=== PATIENT | female | born 1960 | race Caucasian/White ===

== ENCOUNTER → 2018-02-07 01:46 | Outpatient (CLI) | payer MEDICAID, SELFPAY ==
[2018-02-07 13:08] LABS: HCT 40.6 % (36.0-46.0); HGB 13.4 g/dL (12.0-15.5); Mean Corpuscular Hemoglobin 30.2 pg (27.0-33.0); Mean Corpuscular Volume 91.4 fL (80-95); Mean Platelet Volume 11.2 fL (8.0-11.0); Platelet Count 206 x1000/uL (130-400); RBC 4.44 m/cumm (4.00-5.20); RBC Distribution Width 12.9 % (11.7-14.6); White Blood Cell Count 5.78 k/cumm (4.4-10.8)
[2018-02-07 13:17] LABS: TSH (W/Ref FT4) 1.54 uIU/mL (0.358-3.74)
[2018-02-08 12:30] LABS: FSH 36.2 mIU/ml
== END ==
PROVIDERS: PCP Family Medicine; Visit Provider Family Medicine
DX: D64.9 Anemia, unspecified (principal); R61 Generalized hyperhidrosis
CPT/HCPCS: 36415; 85027; 83001; 84443

== ENCOUNTER 2018-05-30 11:45 | Outpatient (CLI) | payer MEDICAID, SELFPAY ==
[2018-05-30 12:59] LABS: Hemoglobin A1C 6.1 % (4.5-6.2)
[2018-05-30 13:01] LABS: CREATININE 0.79 mg/dL (0.55-1.02)
== END 2018-05-30 12:05 ==
PROVIDERS: PCP Family Medicine; Visit Provider Family Medicine
DX: E11.9 Type 2 diabetes mellitus without complications (principal)
CPT/HCPCS: 36415; 82565; 83036

== ENCOUNTER 2018-06-13 00:19 | Outpatient (CLI) | payer MEDICAID, SELFPAY ==
--- NOTE | 2018-06-13 11:43 | DI.MAMMO_ITS ---
SYMPTOMS/DIAGNOSIS: SCREENING FOR BREAST CANCER, Z12.31, H/O BREAST REDUCTION SURGERY MAMMOGRAM: Mammograms were interpreted according to the usual protocol including computer analysis with CAD system, tomosynthesis and C view imaging. The breasts are of moderate density with fairly symmetrical distribution of fibroglandular tissue. No dominant mass or clumped microcalcification identified in either breast. Examination is compared with the previous examinations including May 2017 and there has been no gross interval change in appearance in comparison with the previous studies. CONCLUSION: No specific evidence of malignancy at this time. Routine screening examinations are suggested at yearly intervals in this age group according to the ACS/ACR guidelines. Category 1, breast density category B. SA ASSESSMENT OF FINDINGS: Negative. Category 1. Patient will receive a letter notifying them of these results. BI-RADS category B. There are scattered areas of fibroglandular density.
== END 2018-06-13 00:39 ==
PROVIDERS: PCP Family Medicine; Visit Provider Family Medicine
DX: Z12.31 Encounter for screening mammogram for malignant neoplasm of breast (principal); Z98.890 Other specified postprocedural states
CPT/HCPCS: 77063; 77067

== ENCOUNTER 2019-05-31 11:51 | Outpatient (CLI) | payer MEDICAID, SELFPAY ==
[2019-05-31 13:28] LABS: Calculated LDL 126 mg/dL; Cholesterol 218 mg/dL (<200); HDL Cholesterol 42 mg/dL (40-60); Triglyceride 251 mg/dL (<150)
== END 2019-05-31 12:11 ==
PROVIDERS: PCP Family Medicine; Visit Provider Family Medicine
DX: E74.39 Other disorders of intestinal carbohydrate absorption (principal); Z13.220 Encounter for screening for lipoid disorders; Z00.00 Encounter for general adult medical examination without abnormal findings
CPT/HCPCS: 36415; 80061; 83036

== ENCOUNTER 2020-05-27 13:09 | Outpatient (REF) | payer MEDICAID, SELFPAY ==
--- NOTE | 2020-05-27 12:10 | SKI_PTH ---
PATIENT: Mami Goldstein LOC: [facility] U#:[id number] AGE/SX: 59/F ROOM: RE05/27/[address]: Cruzito Lucero NP : 1960 BED: DIS: 05/27/2020 SPEC #: [id number] RECD: 05/27/20 16:32 STATUS: MILLY REQ #: [id number] RAHUL: 05/27/20 12:[address]: Cruzito Lucero DEPT: Surgical Specimen RECD BY: Concha Mcpherson ENTERED: 05/27/20 16:33 SP TYPE: WILLIAM CARBAJAL DR: Camron Longoria MD Tissues: 1 - SKIN BIOPSY(SHAVE/PUNCH) Procedures: SKIN LEVEL 4 Comments: [id number]
== END 2020-05-27 13:29 ==
LOC: LBN 13:09
PROVIDERS: PCP Family Medicine; Visit Provider Nurse Practitioner Family
DX: D22.61 Melanocytic nevi of right upper limb, including shoulder (principal)
CPT/HCPCS: 88305

== ENCOUNTER 2020-06-17 01:40 | Outpatient (CLI) | payer MEDICAID, SELFPAY ==
--- NOTE | 2020-06-17 07:30 | DI.MAMMO_ITS ---
EXAM: MAMMO SCREENING CLINICAL HISTORY: screening,Z12.39 TECHNIQUE: Mammograms were interpreted according to the usual protocol including computer analysis w [employer] CAD system, tomosynthesis and C-view imaging. COMPARISON: FINDINGS: The breasts are of moderate density with fairly symmetrical distribution of fibroglandular tissue. N o dominant mass or clumped microcalcification is identified in either breast. The current examinatio n is compared with previous examinations including May 2018 and there has been no gross interval change in appearance in comparison with the prior studies. IMPRESSION: No specific evidence of malignancy at this time. Routine screening examinations are suggested at ye checo intervals in this age group according to the ACS ACR guidelines. BI-RADS Category 1 - Negative Breast Density - Category B - Scattered areas of fibroglandular density
[2020-06-17 12:25] LABS: Calculated LDL 203 mg/dL (<100); Cholesterol 304 mg/dL (<200); HDL Cholesterol 41 mg/dL (40-60); Triglyceride 302 mg/dL (<150)
== END 2020-06-17 02:00 ==
PROVIDERS: PCP Family Medicine; Visit Provider Family Medicine
DX: Z12.31 Encounter for screening mammogram for malignant neoplasm of breast (principal); R73.9 Hyperglycemia, unspecified; E78.5 Hyperlipidemia, unspecified
CPT/HCPCS: 36415; 77063; 77067; 80061; 83036

== ENCOUNTER 2020-10-27 22:12 | Outpatient (CLI) | payer MEDICAID, SELFPAY ==
--- NOTE | 2020-10-27 12:00 | DI.RAD_ITS ---
Exam(s) XR CERVICAL SPINE COMP 4-5V EXAM: XR CERVICAL SPINE COMP 4-5V CLINICAL HISTORY: neck pain M54.2 CERVICALGIA TECHNIQUE: COMPARISON: No exams were available for comparison FINDINGS: Six views were obtained. There is disc space narrowing at C3-4 and C5-6. There are moderate hypertr ophic endplate and facet changes throughout the cervical region. No fracture or dislocation. Neural foramina appear intact as visualized on the left. On the right the neural foramina are not ideally visualized, narrowing of lower cervical right-sided neural foramina not excluded. IMPRESSION: Degenerative changes of the cervical spine as described above. If there is a high clinical suspicion of disc herniation or neural foraminal impingement additional evaluation with MR may be considered. RADIATION DOSE DELIVERED: Total DLP
--- NOTE | 2020-10-27 12:00 | DI.RAD_ITS ---
Exam(s) XR LUMBAR SPINE COMPLETE EXAM: XR LUMBAR SPINE COMPLETE CLINICAL HISTORY: lumbar back painM54.5 LOWER BACK PAIN TECHNIQUE: COMPARISON: No exams were available for comparison FINDINGS: Five views were obtained. There is marked loss of the height at L5-S1 with associated endplate hyper trophic changes. Mild endplate hypertrophic changes and facet hypertrophic changes seen throughout t he remainder of the lumbar spine. No evidence of spondylolysis or spondylolisthesis. Slight right c onvex lumbar scoliosis noted. No evidence of acute fracture or dislocation. IMPRESSION: Degenerative changes as described above with evidence of disc degeneration at L5-S1. RADIATION DOSE DELIVERED: Total DLP
--- NOTE | 2020-10-27 12:00 | DI.RAD_ITS ---
Exam(s) XR SHOULDER RT COMPLETE 2+V EXAM: XR SHOULDER RT COMPLETE 2+V CLINICAL HISTORY: right shoulder M25.511 RT SHOULDER PAIN TECHNIQUE: COMPARISON: No exams were available for comparison FINDINGS: Five views were obtained. There appears to be mild narrowing of the cartilaginous joint space of the glenohumeral joint. Slight marginal osteophyte formation of the glenoid and humeral head noted. Mi ld hypertrophic changes of the acromioclavicular joint noted. There is nonspecific soft tissue calci fications she seen adjacent to the proximal humeral shaft. IMPRESSION: Mild degenerative changes as described above. RADIATION DOSE DELIVERED: Total DLP
--- NOTE | 2020-10-27 12:00 | DI.RAD_ITS ---
Exam(s) XR HIP RT COMPLETE AP PELVIS EXAM: XR HIP RT COMPLETE AP PELVIS CLINICAL HISTORY: right hip pain M54.31 SCIATICA TECHNIQUE: COMPARISON: No exams were available for comparison FINDINGS: Three views were obtained. The cartilaginous joint spaces of both hips appear fairly well maintained . There is mild enthesophyte formation of the greater trochanter of the femur on the right and proba juan also on the left as well. Minimal marginal osteophyte formation of acetabula noted. IMPRESSION: Mild DJD both hips. RADIATION DOSE DELIVERED: Total DLP
== END 2020-10-27 22:32 ==
PROVIDERS: PCP Family Medicine; Visit Provider Nurse Practitioner Family
DX: M25.511 Pain in right shoulder (principal); M19.011 Primary osteoarthritis, right shoulder; M54.5 Low back pain; M51.37 Other intervertebral disc degeneration, lumbosacral region; M25.551 Pain in right hip; M16.0 Bilateral primary osteoarthritis of hip; M54.2 Cervicalgia; M50.31 Other cervical disc degeneration, high cervical region; M50.322 Other cervical disc degeneration at C5-C6 level
CPT/HCPCS: 72050; 72110; 73030; 73502

== ENCOUNTER 2021-05-05 00:39 | Outpatient (CLI) | payer MEDICAID, SELFPAY ==
--- NOTE | 2021-05-05 07:00 | DI.MRI_ITS ---
Exam(s) MR LUMBAR SPINE WO EXAM: MR LUMBAR SPINE WO CLINICAL HISTORY: stool incontinence/low backpain,M54.5,R15.9. TECHNIQUE: Multiplanar multisequence MRI was performed. COMPARISON: No exams were available for comparison FINDINGS: MR examination lumbosacral spine was performed according to the usual protocol. There are Misty discal vertebral signal changes at L5-S1 consistent with disc degeneration. Otherwise intervertebral disc spaces are well maintained. There is loss of height at L5-S1 intervertebral dis c. No other significant bony signal abnormality seen. The conus medullaris appears intact. No significant findings involving the spinal canal, nerve roots , or discs from the T10-T11 level to the L2-3 level. At L3-4, there is minimal disc bulge. There is no evidence of disc herniation, central canal spinal stenosis, or neural foraminal stenosis. At L4-5, there is a moderate disc bulge. There is a question of a small superimposed central disc he rniation at this level. No central canal spinal stenosis or neural foraminal stenosis. At L5-S1, there is a moderate disc bulge without evidence of focal disc herniation. No significant c entral canal spinal stenosis. There appears to be slight bilateral neural foraminal stenosis.. IMPRESSION: Moderate disc bulge at L4-5 with possible mild superimposed central disc herniation, no gross neural impingement identified. Mild bilateral neural foraminal narrowing at L5-S1. DATA REPOSITORY:
--- NOTE | 2021-05-05 07:00 | DI.MRI_ITS ---
Exam(s) MR CERVICAL SPINE WO EXAM: MR CERVICAL SPINE WO CLINICAL HISTORY: ms; neck pain,M54.2. TECHNIQUE: Multiplanar multisequence MRI was performed. COMPARISON: No exams were available for comparison FINDINGS: MR examination of the cervical spine was performed according to the usual protocol. Images obtained through the posterior fossa are unremarkable. Spinal cord shows normal diameter and normal signal throughout. There is no significant bony signal abnormality seen. There is a mild mid cervical kyphosis. There is prominence of the disc osteophyte complex posteriorly at C 3 4, C4-5, and C5-6. No significant findings at C2-3. At C3-4, there appears to be moderate bilateral neural foraminal narrowing. No disc herniation, or c entral canal spinal stenosis. At C4-5, there is probable mild left-sided neural foraminal narrowing. No right-sided neural foramin al narrowing or central canal spinal stenosis. There is prominence of the disc osteophyte complex wi thout disc herniation. At C5-6, there is bilateral neural foraminal narrowing. There is no central canal spinal stenosis. There is prominence of the disc osteophyte complex. No disc herniation seen. At C6-7, the neural foramina are poorly seen. No evidence of disc herniation or central canal spinal stenosis. IMPRESSION: Prominence of the disc osteophyte complex noted at multiple levels, multilevel neural foraminal narro wing noted. Please see above discussion for findings at individual levels. DATA REPOSITORY:
== END 2021-05-05 00:59 ==
PROVIDERS: PCP Family Medicine; Visit Provider Family Medicine
DX: M54.59 Other low back pain (principal); R15.9 Full incontinence of feces; M54.2 Cervicalgia; M51.26 Other intervertebral disc displacement, lumbar region; M48.07 Spinal stenosis, lumbosacral region
CPT/HCPCS: 72141; 72148

== ENCOUNTER 2021-06-22 03:25 | Outpatient (CLI) | payer MEDICAID, SELFPAY ==
[2021-06-22 12:40] LABS: CREATININE 0.9 mg/dL (0.55-1.02); Calculated LDL 131 mg/dL (<100); Cholesterol 248 mg/dL (<200); HDL Cholesterol 47 mg/dL (40-60); Potassium 4.3 mmol/L (3.5-5.1); Triglyceride 351 mg/dL (<150)
== END 2021-06-22 03:26 | disposition home or self-care (01) ==
LOC: LBO 03:25
PROVIDERS: PCP Family Medicine; Visit Provider Family Medicine
DX: E78.5 Hyperlipidemia, unspecified (principal); I10 Essential (primary) hypertension
CPT/HCPCS: 36415; 80061; 82565; 84132

== ENCOUNTER 2021-09-20 04:08 | Outpatient (CLI) | payer MEDICAID, SELFPAY ==
[2021-09-20 10:27] LABS: Source Nasal/Nares
[2021-09-20 14:44] LABS: COVID-19 PCR Negative (Negative)
== END 2021-09-20 04:09 | disposition home or self-care (01) ==
PROVIDERS: Surgery; PCP Family Medicine; Visit Provider Surgery
DX: Z20.822 Contact with and (suspected) exposure to COVID-19 (principal); Z01.818 Encounter for other preprocedural examination
CPT/HCPCS: 87635

== ENCOUNTER 2021-09-22 09:32 | Day surgery (SDC) | payer MEDICAID, SELFPAY ==
--- NOTE | 2021-09-22 06:42 | W.COLOREPORT ---
Colonoscopy Report Date of procedure: 09/22/21 Pre-op diagnosis general: Colon Cancer Screening Post-op diagnosis procedure note: same Procedure: Colonoscopy Surgeon: Cherise Grant Anesthesia Type: General:No Airway Estimated blood loss (mL): 0 Pathology: none sent Complications: None Disposition: same day Indications: The patient is here for Colonoscopy pre-op. Her last screening was in 2010 and was unremarkable. She has no family history of colon cancer. She has not had any bowel habit changes. -Discussed colonoscopy bowel prep as well as the procedure. Discussed possible complications of the procedure to include bleeding, pain, perforation, missed small lesion/polyp, sore throat, aspiration and adverse reaction to the medications. Questions were answered to patient?s satisfaction. No guarantees were implied or given.? Prep: Miralax/Dulcolax Procedure Start Time: 12:01 Procedure End Time: 12:23 Retraction Time: 11 minutes Findings: Normal colon Procedure Description: After informed consent was obtained the patient was taken to the procedure room and placed in a left decubitous position. Monitors were applied and a time out was done. The patients name, date of , procedure, allergies to medications and metal in their body was reviewed. The patient was then sedated. Once sedated and comfortable a rectal exam was done. External exam was normal. Internal exam revealed a normal sphincter tone and no palpable masses. The scope was then introduced and retro-flexed. No internal hemorrhoids, polyps or masses were identified on retro-flexion. The scope was then advanced to the cecum without difficulty. The ileocecal vlave and appendiceal orifice were identified. The prep was adequate. The scope was then slowly retracted over 11 minutes back into the rectum. There were no Polyps. There was no diverticulosis noted. The scope was removed and the patient was woken up and taken back to Same day surgery in stable condition. The patient tolerated the procedure well and there were no immediate complications. Follow up: The patient should follow up in 10 years unless they develop changes in bowel habits or other new gastrointestinal complaints.
--- NOTE | 2021-09-22 06:43 | W.PM.DSUDISC ---
Discharge Plan Disposition Patient Disposition: HOME Condition: Stable Discharge Details Reason For Visit: Colonoscopy Attending Provider: Cherise Grant Primary Care Provider: Camron Longoria Home Meds and New Rx's Prescriptions: Continued omega-3 fatty acids [Fish Oil Concentrate] 1,000 mg capsule 1,000 mg PO DAILY 0RF epinephrine 0.3 mg/0.3 mL auto-injector 0.3 mg IM PRN Qty: 1 1RF escitalopram oxalate 20 mg tablet 40 mg PO QAM Qty: 180 4RF Rx Instructions: 2 TABS QAM fluticasone propion-salmeterol [Advair Diskus] 250-50 mcg/dose blister with device 1 inh Inhalation BID Qty: 3 4RF simvastatin 40 mg tablet 40 mg PO HS Qty: 90 4RF fluticasone propionate 50 mcg/actuation spray,suspension 2 spray NS DAILY Qty: 120 5RF multivitamin 1 EACH tablet 1 ea PO DAILY 0RF glatiramer [Copaxone] 20 MG kit 20 mg SQ HS 0RF GLUCOSAMINE \T\ CHONDROITIN CAP 1 EACH capsule 1 tab-cap PO BID Qty: 200 4RF calcium carbonate-vitamin D3 1 EACH tablet 2 ea PO BID 0RF Label Comments: 11/15/16 1 tab BID. si albuterol sulfate [ProAir HFA] 90 mcg/actuation HFA aerosol inhaler 1 - 2 puff Inhalation Q4H PRN Qty: 18 3RF lisinopril 5 mg tablet 5 mg PO DAILY Qty: 90 4RF estradiol [Estrace] 0.5 mg tablet 0.5 mg PO DAILY Qty: 90 3RF loratadine 10 mg tablet See Rx Instructions .ROUTE .COMPLEX Qty: 90 4RF Dose Instruction: TAKE ONE TABLET BY MOUTH EVERY DAY Rx Instructions: TAKE ONE TABLET BY MOUTH EVERY DAY simvastatin 20 mg Tablet 20 mg PO DAILY 0RF Discharge Instructions Additional Instructions: Findings: Normal colonoscopy Follow up: 10 years Please call if you develop: fevers >101.5 Nausea or Vomiting Abdominal pain that is not transient Rectal bleeding that is more then a tbsp A hard abdomen and inability to pass gas DAY SURGERY UNIT POST ENDOSCOPY INSTRUCTIONS Instructions for everyone who is given Anesthesia: For your safety, please do the following for the next 24 Hours: a. Do not drive or operate dangerous equipment b. Do not drink alcohol beverages or use any recreational drugs for the first 24 hours or while taking pain medications. The medications in your body may have a reaction that can be dangerous. c. Do not make any important decisions or sign any important papers 1. Generally there are no restrictions on your activity after a day or so has gone by, but you may feel a bit fatigued for a few days. 2. After you arrive home you may have a light meal and return to a normal diet as you can tolerate it without feeling sick to your stomach. 3. After surgery, you may feel pain or discomfort. This should be only transient, but if it persists please contact your doctor. 4. If there are any questions regarding the findings of your procedure, please feel free to contact your doctor. 6. If you are unable to contact your doctor with a problem, contact the hospital at [phone]. 7. Continue all your regular medications unless directed otherwise. I understand the above instructions and have no questions. Signature of Patient or Responsible Adult Escort Date/Time Name of Responsible Adult Escort Signature of Nurse Date/Time Activity:: Activity as Tolerated Diet:: As Tolerated Discharge Orders Discharge Orders: Discharge Order (Routine); Ordered 09/22/21 Ordered By: Cherise Grant
[2021-09-22 09:50] VITALS: BP 152/95; PULSE 79; RESP 16; TEMP 36.1; O2SAT 98
[2021-09-22] MEDS: Lactated Ringers 1,000 ML 80 ML IV (10:14)
--- NOTE | 2021-09-22 10:37 | W.ANESPRE ---
General Info Date of Service Date Performed: 09/22/21 Height: 5 ft 3 in Weight: 88 kg Body Mass Index (BMI): 34.3 Surgical Procedure: Operation Date: 09/22/21 12:50 Proposed Procedure Side Surgeon sharon Grant MD Meds Allergies and Home Medications Allergies Allergy/AdvReac Type Severity Reaction Status Date / Time tree nut Allergy Intermediate Verified 09/22/21 09:43 Penicillins Allergy Mild HIVES- A Verified 09/22/21 09:43 CHILD Home Medication Medication Instructions Recorded glatiramer 20 mg/mL subcutaneous 20 mg SQ HS 04/03/13 syringe (Copaxone) multivitamin 1 ea PO DAILY 04/03/13 calcium carbonate 1,000 mg-vitamin 2 ea PO BID 01/05/16 D3 20 mcg (800 unit) tablet omega-3 fatty acids 1,000 mg 1,000 mg PO DAILY 01/14/19 capsule (Fish Oil Concentrate) epinephrine 0.3 mg/0.3 mL 0.3 mg (0.3 mL) IM PRN #1 pen 12/03/19 injection, auto-injector albuterol sulfate 90 mcg/actuation 1 - 2 puff INHALATION Q4H PRN #18 01/11/21 aerosol inhaler (ProAir HFA) gm lisinopril 5 mg tablet 5 mg PO DAILY #90 tab 02/05/21 estradiol 0.5 mg tablet (Estrace) 0.5 mg PO DAILY #90 tab-cap 05/12/21 escitalopram oxalate 20 mg tablet 40 mg PO QAM #180 tab-cap 06/09/21 fluticasone 250 mcg-salmeterol 50 1 inh INHALATION BID #3 each 06/09/21 mcg/dose blistr powdr for inhalation (Advair Diskus) fluticasone propionate 50 2 spray NS DAILY #120 sprays 06/09/21 mcg/actuation nasal spray,suspension simvastatin 40 mg tablet 40 mg PO HS #90 tab-cap 06/09/21 loratadine 10 mg tablet See Rx Instructions .ROUTE 08/05/21 .COMPLEX #90 tablet simvastatin 20 mg tablet 20 mg PO DAILY 09/22/21 Current Visit Medications: Current Medications Generic Name Dose Route Start Last Admin Trade Name Freq PRN Reason Stop Dose Admin Hyoscyamine Sulfate 0.125 mg 09/22/21 06:44 Hyoscyamine 0.125 Mg Sl/Oral/Chew SL DIRECTED PRN Ringer's Solution 1,000 mls @ 80 mls/hr 09/22/21 06:00 09/22/21 10:14 IV 10/21/21 23:59 80 mls/hr INFUSION ULISES Administration IV Miscellaneous Supplies 1 each 09/22/21 06:00 Iv Access IV 10/21/21 23:59 DIRECTED ULISES Ondansetron HCl 4 mg 09/22/21 06:44 Ondansetron 4 Mg/2 Ml Vial IVP Q4H PRN PRN Nausea / Vomiting Sodium Chloride 0 ml 09/22/21 06:00 Normal Saline Flush 10 Ml Syr IV 10/21/21 23:59 PRN PRN Sodium Chloride 0 ml 09/22/21 06:00 Normal Saline 10 Ml Vial IJ 10/21/21 23:59 DIRECTED PRN Sterile Water 0 ml 09/22/21 06:00 Water,Injection,Sterile 10 Ml Vial IJ 10/21/21 23:59 DIRECTED PRN PFSH Active Problems Active Problems: Problem Status Onset Code Asthma 11/13/13 J45.909 Anxiety F41.9 Depressive disorder F32.9 Essential hypertension I10 Hyperlipidemia E78.5 Insomnia G47.00 Low back pain M54.5 Malignant melanoma of torso excluding breast 12/01/16 C43.59 Multiple sclerosis G35 Obesity E66.9 Pinworms 01/15/15 B80 Allergic rhinitis J30.9 Shoulder pain, right M25.511 Ear pain, right H92.01 Adjustment disorder F43.20 Lumbar back pain M54.5 Neck pain M54.2 Incontinence of feces R15.9 Screening for colon cancer Z12.11 Medical History Medical History Anxiety Asthma Depression Essential hypertension Hyperlipidemia Insomnia Low back pain Multiple sclerosis Surgical History Surgical History (Updated 09/22/21 @ 09:43 by Darrian Delarosa) Cholecystectomy Colonoscopy - MAC 04/04/11 Excision, Skin Mass (12/01/16) right chest Hx of tonsillectomy Ligation of fallopian tube Reduction mammoplasty Vaginal hysterectomy 11/17/10 Tobacco Smoking/Tobacco Use Status: Never Passive smoking exposure: Yes Alcohol Alcohol Intake: current Alcohol intake frequency: a few times a month Substance Use Substance use: Never Vital Signs and Lab Results Vital Signs Most Recent Vital Signs in EMR: Most Recent Vital Signs Temp Pulse Resp BP Pulse Ox 36.1 C L 79 16 152/95 H 98 09/22/21 09:50 09/22/21 09:50 09/22/21 09:50 09/22/21 09:50 09/22/21 09:50 Lab Results Blood Type / Crossmatch: No Data to Display Complete Blood Count: No Data to Display Complete Metabolic Panel: No Data to Display Liver Function Panel: No Data to Display Coagulation Panel: No Data to Display Cardiac Panel: No Data to Display Arterial Blood Gas: No Data to Display Venous Blood Gas: No Data to Display Pancreas Panel: No Data to Display Thyroid Panel: No Data to Display Infectious Disease: Coronavirus (COVID-19)(PCR) Negative (Negative) 09/20/21 08:29 09/20/21 Coronavirus 2019 Source Nasal/Nares 09/20/21 08:29 09/20/21 Blood Cultures: No Data to Display Toxicology Panel: No Data to Display Anesthesia Assessment and Plan Anesthesia History Personal History: No History of Anesthesia Complications Family History: No Family History of Anesthesia Complications Exercise Tolerance Exercise Tolerance: Metabolic Equivalents>4 Pertinent Negatives Pertinent Negatives: No Symptoms of GERD and No Major Cardiovascular Symptoms or Complaints Cardiac & Pulmonary Exam Cardiac Exam: Normal S1/S2 Heart Sounds Pulmonary Exam: Clear Bilateral Breath Sounds Implantable Cardiac Device Does patient have a Pacemaker or an ICD?: No Airway Exam Known Difficult Airway: No Mallampati Class: 2 Mouth Opening: Normal (> 3cm) Thyromental Distance: Less than 3 cm Neck Range of Motion: Full ROM Neck Circumference: Normal Teeth Condition: Normal Dentition ASA Classification ASA Score: ASA 3 Emergency Case?: No NPO Status NPO Status: NPO Clears >2 hours, Solids >8 hours Anesthesia Plan Resuscitation Status: Full Code Anesthesia Technique: General Anesthesia Airway Planned: Natural Airway Monitors Used: Standard Monitors
[2021-09-22 10:38] VITALS: BMI 34.3
[2021-09-22 12:29] VITALS: BP 111/67; PULSE 61; RESP 16; TEMP 36.3; O2SAT 97
--- NOTE | 2021-09-22 12:34 | W.ANESPOSTOP ---
Postoperative Evaluation Date, Time and Location Date Performed: 09/22/21 Time Performed: 12:34 Patient Location: Day Surgery Unit Vital Signs Most Recent Imported Vital Signs: Most Recent Vital Signs Temp Pulse Resp BP Pulse Ox 36.3 C L 61 16 111/67 97 09/22/21 12:29 09/22/21 12:29 09/22/21 12:29 09/22/21 12:29 09/22/21 12:29 Pain Score Most Recent Pain Score: Most Recent Pain Score Pain Level 0 09/22/21 12:29 Assessment Mental Status: Awake (Alert & Oriented to Patient Baseline) Airway and Respiratory Function: Patent airway with normal (patient baseline) respiratory exam Cardiovascular Function: Hemodynamically Stable Hydration Status: Adequately Hydrated Nausea & Vomiting: No Nausea or Vomiting Pain: Pt. Denies Any Pain Peripheral Nerve Block: Patient did not receive a nerve block
[2021-09-22 12:57] VITALS: BP 127/91; PULSE 61; RESP 16; TEMP 36.5; O2SAT 99
== END 2021-09-22 13:16 | disposition home or self-care (01) ==
LOC: SUR 09:32
PROVIDERS: PCP Family Medicine; Visit Provider Surgery
PROC: 0DJD8ZZ Inspection of Lower Intestinal Tract, Via Natural or Artificial Opening Endoscopic (ICD-10-PCS; CPT 45378; principal; 2021-09-22 12:45)
DX: Z12.11 Encounter for screening for malignant neoplasm of colon (principal); G35 Multiple sclerosis; I10 Essential (primary) hypertension
CPT/HCPCS: 45378

== ENCOUNTER → 2021-10-18 01:05 | Outpatient (CLI) | payer MEDICAID, SELFPAY ==
--- NOTE | 2021-10-18 08:15 | DI.MAMMO_ITS ---
Exam(s) MAMMO SCREENING EXAM: MAMMO SCREENING CLINICAL HISTORY: screening,z12.39 TECHNIQUE: Mammograms were interpreted according to the usual protocol including computer analysis w [employer] CAD system, tomosynthesis and C-view imaging. COMPARISON: 2011 through 2019 FINDINGS: The breasts are composed of mainly fatty density , Breast Density category A. No suspicious masses or suspicious microcalcifications are seen. No skin thickening or abnormal axillary lymph nodes are seen. There has been no significant change from prior exams. IMPRESSION: BI-RADS Category 1, Negative mammogram Yearly screening mammography is recommended. Breast Density - Category A, fatty density. A negative radiographic report should not delay biopsy if a dominant or clinically suspicious mass is present. Up to ten percent of cancers are not identified on mammography. A negative report may reinforce clinical impression. Adenosis and dense breasts may obscure an underlying neoplasm. False positive reports average 6 to 10%. Patient will receive a letter notifying them of these results.
== END ==
PROVIDERS: PCP Family Medicine; Visit Provider Family Medicine
DX: Z12.31 Encounter for screening mammogram for malignant neoplasm of breast (principal)
CPT/HCPCS: 77063; 77067

== ENCOUNTER 2022-01-07 02:38 | Outpatient (CLI) | payer MEDICAID, SELFPAY ==
[2022-01-07 13:02] LABS: Triglyceride 260 mg/dL (<150)
== END 2022-01-07 02:39 | disposition home or self-care (01) ==
LOC: LOS 02:39
PROVIDERS: PCP Family Medicine; Visit Provider Family Medicine
DX: E78.1 Pure hyperglyceridemia (principal)
CPT/HCPCS: 36415; 84478

== ENCOUNTER 2022-06-24 02:26 | Outpatient (CLI) | payer MEDICAID, SELFPAY ==
[2022-06-24 13:16] LABS: Calculated LDL 145 mg/dL (<100); Cholesterol 220 mg/dL (<200); HDL Cholesterol 45 mg/dL (40-60); Triglyceride 154 mg/dL (<150)
== END 2022-06-24 02:27 | disposition home or self-care (01) ==
LOC: LOS 02:26
PROVIDERS: PCP Family Medicine; Visit Provider Family Medicine
DX: E78.5 Hyperlipidemia, unspecified (principal)
CPT/HCPCS: 36415; 80061

== ENCOUNTER 2022-12-05 19:02 | Outpatient (CLI) | payer MEDICAID, SELFPAY ==
--- NOTE | 2022-12-05 19:15 | DI.RAD_ITS ---
Exam(s) XR WRIST LT COMPLETE EXAM: XR WRIST LT COMPLETE CLINICAL HISTORY: left dorsal wrist pain. TECHNIQUE: 2D digital imaging was performed of the left wrist. Three images were obtained. PA, obl ique and lateral views were obtained. COMPARISON: No exams were available for comparison FINDINGS: BONES: No acute fracture is present. No bony destructive lesion is seen. JOINTS: The carpal bones are normally aligned. SOFT TISSUE: Soft tissue swelling along the dorsum of the wrist. Faint calcification is seen within the soft tissue posterior to the proximal carpal row. Please correlate clinically. Foreign body isabell marisol dystrophic calcification. IMPRESSION: No acute fracture or dislocation. DATA REPOSITORY: RADIATION DOSE DELIVERED:
--- NOTE | 2022-12-05 20:10 | DI.VRAD_ITS ---
PROCEDURE INFORMATION: Exam: XR Left Wrist Exam date and time: 12/05/2022 7:25 PM Age: 62 years old Clinical indication: Other: Left dorsal wrist pain TECHNIQUE: Imaging protocol: Radiologic exam of the left wrist. Views: 3 or more views. COMPARISON: No relevant prior studies available. FINDINGS: Bones/joints: No acute fracture or dislocation. Normal osseous mineralization. Soft tissues: Mild dorsal wrist soft tissue swelling. Soft tissue calcification dorsal to the proximal carpal row, likely posttraumatic. IMPRESSION: No acute abnormality. Dictated and Authenticated by: Bhupendra Miller MD. Ordering:KARLA Tovar MD
== END 2022-12-05 19:22 ==
LOC: DI 19:02
PROVIDERS: PCP Family Medicine; Visit Provider Nurse Practitioner
DX: M77.8 Other enthesopathies, not elsewhere classified (principal)
CPT/HCPCS: 73110

== ENCOUNTER → 2023-07-05 01:48 | Outpatient (CLI) | payer MEDICAID, SELFPAY ==
--- NOTE | 2023-07-05 08:00 | DI.MRI_ITS ---
Exam(s) MR LUMBAR SPINE WO EXAM: MR LUMBAR SPINE WO CLINICAL HISTORY: low back pain,M54,5. TECHNIQUE: Multiplanar multisequence MRI of the Lumbar spine was performed. COMPARISON: CR XR LUMBAR SPINE COMPLETE from 10/27/2020 MR MR LUMBAR SPINE WO from 05/05/2021 FINDINGS: Conus medullaris is at normal level. There is no evidence of conus mass nor subjacent clumping of in trathecal nerve roots to suggest arachnoiditis. The distal thecal sac is at the S1 level. No eviden ce of Tarlov intra sacral cysts nor other significant findings within the sacral canal. Bones:There are no fractures nor ominous osseous lesions in the lumbar vertebral bodies and visualize d sacrum. Modic type 2 sub endplate fatty marrow changes are seen on both sides of the chronically n arrowed L5-S1 disc space. This was also present on the MRI scan of 05/05/2021. With respect to the individual levels... T12-L1: Unremarkable L1-2: Normal disc height and signal. No disc herniation nor central canal stenosis.No foraminal steno sis L2-3: Normal disc height. No disc herniation nor central canal stenosis.No foraminal stenosis.No face t arthropathy. L3-4: Normal disc height. No disc herniation or central canal stenosis.No foraminal stenosis.No face t arthropathy. L4-5: Normal disc height. There is annular bulging with a superimposed central subligamentous disc p rotrusion. Slightly more prominent than previous. This indents the anterior aspect of the thecal sa c. Osseous canal dimensions are lower normal. Moderate facet arthropathy noted. The disc herniatio n does not extend into the exiting neural foramen and there is no evidence of foraminal stenosis on e ither side at this level L5-S1: This level again exhibits chronic disc space narrowing and Modic type 2 sub endplate fatty mar row changes, unchanged from previous. There is broad mild symmetrical annular bulging at this level. No significant disc herniation. Central canal dimensions are lower normal. There is mild bilatera l foraminal stenosis again noted. Mild facet arthropathy. Soft tissues: paraspinal soft tissues appear unremarkable. IMPRESSION: 1. Compared to the prior MRI scan of April 2021 there is minimal if any significant change. There is moderate disc bulge L4-5 with superimposed posterior central disc herniation, unchanged. No prom inent canal stenosis at this level nor foraminal stenosis. 2. Chronic advanced disc space narrowing at L5-S1 level again noted with Modic type 2 sub endplate fa tty marrow changes. No canal stenosis at this level. Mild bilateral foraminal stenosis appears unch anged. DATA REPOSITORY:
== END ==
PROVIDERS: PCP Family Medicine; Visit Provider Family Medicine
DX: M51.26 Other intervertebral disc displacement, lumbar region (principal)
CPT/HCPCS: 72148

== ENCOUNTER 2023-10-04 10:41 | Outpatient (CLI) | payer MEDICAID, SELFPAY ==
[2023-10-04 10:50] VITALS: BP 128/71; PULSE 63; RESP 20; TEMP 36.6; O2SAT 98
[2023-10-04 11:22] VITALS: BP 153/73; PULSE 64; RESP 19; O2SAT 97
--- NOTE | 2023-10-04 11:22 | DI.RAD_ITS ---
Exam(s) XR PAIN CLINIC SACRIOILIAC 2V EXAM: XR PAIN CLINIC SACRIOILIAC 2V CLINICAL HISTORY: Dx: Sacroiliac Joint Dysfunction. TECHNIQUE: Fluoroscopy was provided for the referring physician for guidance with performing pain cl inic injection procedure. COMPARISON: No exams were available for comparison FINDINGS: Please see procedure note for details. Fluoro time: 23.6 seconds RADIATION DOSE DELIVERED: Ka,r=6.51 mGy
[2023-10-04] MEDS: Omnipaque 240 MG/ML 50 ML BTL IJ (11:23)
[2023-10-04] MEDS: Nerve Block Tray 1 EACH MC (11:23)
[2023-10-04] MEDS: methylPREDNISolone ACETATE 80 MG/ML VIAL IJ (11:24)
--- NOTE | 2023-10-04 12:20 | PDOC.PAIN ---
Date of service: 10/04/23 Time of Service: 12:20 Pain Managment Procedure Note Procedure Note Procedure Note: PROCEDURE NOTE LEFT INTRA-ARTICULAR SACROILIAC JOINT INJECTION Date of Service: October 04, 2023 Patient: Mami Goldstein Provider: Bhupendra Ricketts DO, MPH COMMENTS: I previously evaluated the patient in the office and their symptoms in relation to the sacroiliac joint pain have remained the same. Pre-operative diagnosis: Sacroiliac joint dysfunction Post-operative diagnosis: Same Pre-procedure pain: VAS= 7/10 Mami Goldstein has been referred to our [facility] for a Left intra-articular Sacroiliac joint injection. Mami was interviewed and the medical record reviewed. There were no medical, pharmacologic, radiographic or other structural contraindications to attempting a fluoroscopically-guided, contrast-enhanced, intra-articular Sacroiliac joint injection. The risks, benefits, and potential side effects of this procedure were reviewed with the patient. Questions and concerns were addressed. After it was clear that Mami was fully informed about the procedure, the printed consent form was signed by the patient and myself. Mami was placed in the prone position on the fluoroscopy table and an automated blood pressure cuff, 3 lead EKG, and pulse oximeter were applied. The skin entry point for approaching the Left sacroiliac joint was identified under the most advantageous fluoroscopic view and marked. Following thorough Chlorhexadine preparation of the skin and draping with sterile surgical drapes, 2 mls of 1% lidocaine was infiltrated into the skin at the entry point and the surrounding subcutaneous tissues. Next, a 3.5 22G spinal needle was placed under fluoroscopic guidance into the Left sacroiliac joint. Intra-articular placement was confirmed by a clear arthrogram resulting from the injection of 0.25ml of Omnipaque-240. Next, 1 ml of Depo- Medrol 80 mg/ml was injected intra-articularly with an initial reproduction of a significant component of the usual pain. This was followed with 1 ml of 1% Lidocaine. The needle was then removed without difficulty. (49 ml of Omnipaque-240 was wasted). Mami's vital signs were stable throughout the procedure and were as recorded in nursing records. Follow up plans and appointments were discussed with Mami. Post procedure instructions were given as documented in nursing records. Having met discharge criteria, Mami was [facility] from the [facility]. COMMENTS: Post-procedure pain: VAS= 1/10. If the patient receives at least 50% improvement in pain and/or function for at least 3 months, this procedure can be repeated if needed. I personally performed this entire procedure. BHUPENDRA RICKETTS DO, MPH ABPMR-subspecialty board certification in Pain Medicine [facility]
== END 2023-10-04 10:42 | disposition home or self-care (01) ==
LOC: PC 10:42
PROVIDERS: PCP Family Medicine; Visit Provider Preventive Medicine Occupational Medicine
DX: M46.1 Sacroiliitis, not elsewhere classified (principal)
CPT/HCPCS: 27096; 72200; J1010; Q9967

== ENCOUNTER 2024-07-13 15:26 | Outpatient (CLI) | payer MEDICAID, SELFPAY ==
--- NOTE | 2024-07-13 | DI.RAD_ITS ---
Exam(s) XR SCAPULA RT EXAM: XR SCAPULA RT CLINICAL HISTORY: fall, shoulder pain. TECHNIQUE: 2D digital imaging was performed. COMPARISON: CR XR SHOULDER RT COMPLETE 2+V from 07/13/2024 FINDINGS: Two dedicated scapular views No evidence of scapular fracture. There are some degenerative changes in the glenohumeral and AC joints. There is also a calcific dens ity in subacromial space consistent with calcific rotator cuff tendinitis. No adjacent rib fractures . IMPRESSION: No scapular fracture evident. Other findings as above. DATA REPOSITORY: RADIATION DOSE DELIVERED:
--- NOTE | 2024-07-13 | DI.RAD_ITS ---
Exam(s) XR SHOULDER RT COMPLETE 2+V EXAM: XR SHOULDER RT COMPLETE 2+V CLINICAL HISTORY: fall, shoulder pain. TECHNIQUE: 2D digital imaging was performed. COMPARISON: CR XR SHOULDER RT COMPLETE 2+V from 10/27/2020 FINDINGS: Five views No evidence of acute fracture or dislocation of the glenohumeral and AC joints. There is no diminuti on of the subacromial space. However, there is a calcific density in the soft tissues immediately ad jacent to the greater tuberosity, this measuring 6 x 4 mm and increased in size from prior measuremen t of 2020, consistent with calcific rotator cuff tendinitis. There are some degenerative changes also noted in the glenohumeral joint. There is a small osteophyt e on the inferior articular surface of the humeral head. Mild degenerative changes are also noted in the AC joint. Coracoid process is intact. IMPRESSION: No acute fracture or dislocation. Calcific rotator cuff tendinitis. Degenerative changes in the glenohumeral joint noted. DATA REPOSITORY: RADIATION DOSE DELIVERED:
--- NOTE | 2024-07-13 | DI.RAD_ITS ---
Exam(s) XR KNEE RT 3V AP,LAT,JERSON EXAM: XR KNEE RT 3V AP,LAT,JERSON CLINICAL HISTORY: fall, anterior knee pain. TECHNIQUE: 2D digital imaging was performed. COMPARISON: No exams were available for comparison FINDINGS: 3 views No evidence of fracture. No joint space narrowing. However, the does appear to be a joint effusion and on the lateral view there is subtle indentation of the cortical surface of the lateral femoral co ndyle. The patella exhibits somewhat more lateral than typical location. IMPRESSION: Lateral patellar location. Correlation any recent history of patellar dislocation recommended There is subtle indentation of the lateral condyle possibly related to pivot-shift injury. This, in combination with the joint effusion may imply internal derangement such is ACL injury. Orthopedic follow-up recommended. DATA REPOSITORY: RADIATION DOSE DELIVERED:
== END 2024-07-13 15:46 ==
PROVIDERS: PCP Family Medicine; Visit Provider Physician Assistant
DX: M75.31 Calcific tendinitis of right shoulder (principal); M25.561 Pain in right knee; W19.XXXA Unspecified fall, initial encounter
CPT/HCPCS: 73562; 73010; 73030

== ENCOUNTER 2024-08-30 00:15 | Outpatient (CLI) | payer MEDICAID, SELFPAY ==
--- NOTE | 2024-08-30 07:30 | DI.MRI_ITS ---
Exam(s) MR UPPER JOINT RT WO EXAM: MR UPPER JOINT RT WO CLINICAL HISTORY: R SHOULDER PAIN,RT ROTATOR CUFF TEAR,OA RT SHOULDER,M75.101,M19.011. TECHNIQUE: Multiplanar multisequence MRI was performed. COMPARISON: CR XR SCAPULA RT from 07/13/2024 CR XR SHOULDER RT COMPLETE 2+V from 07/13/2024 FINDINGS: The examination is limited due to patient motion artifact. BONES: There is no fracture or contusion pattern. JOINTS: There are mild degenerative changes seen at the acromioclavicular joint. The glenohumeral [place] int is normal. There is a joint effusion. TENDONS: Supraspinatus: There is a full-thickness tear through the supraspinatus tendon at its insertion site onto the greater tuberosity. There is underlying tendinosis of the supraspinatus tendon. Infraspinatus: There is tendinosis of the infraspinatus tendon. Subscapularis: There is tendinosis of the subscapularis tendon. Teres [place]: Unremarkable. Biceps and [place]: The biceps tendon is medially displaced. MUSCLES: Unremarkable. GLENOID LABRUM: Unremarkable on this noncontrast examination. SOFT TISSUES: Unremarkable. LIGAMENTS: Unremarkable. OTHER: There is fluid seen in the subacromial subdeltoid bursa. IMPRESSION: 1. Examination was limited by patient motion artifact. 2. Full-thickness tear of the supraspinatus tendon at its insertion site. 3. Medial dislocation of the biceps tendon. 4. Tendinosis of the supraspinatus, infraspinatus and subscapularis tendons. 5. No evidence of a fracture. 6. Joint effusion and fluid seen in the subacromial subdeltoid bursa. 7. Degenerative changes of the acromioclavicular joint. DATA REPOSITORY:
== END 2024-08-30 00:35 ==
LOC: DI 00:15
PROVIDERS: PCP Family Medicine; Visit Provider Student in an Organized Health Care Education/Training Program
DX: M75.121 Complete rotator cuff tear or rupture of right shoulder, not specified as traumatic; M75.21 Bicipital tendinitis, right shoulder
CPT/HCPCS: 73221

== ENCOUNTER 2024-09-04 02:18 | Outpatient (CLI) | payer MEDICAID, SELFPAY ==
--- NOTE | 2024-09-04 06:45 | DI.MRI_ITS ---
Exam(s) MR LOWER JOINT RT WO EXAM: MR LOWER JOINT RT WO CLINICAL HISTORY: PAIN,internal derangement rt knee, m23.91. TECHNIQUE: Multiplanar multisequence MRI was performed. COMPARISON: CR XR KNEE RT 3V AP,LAT,JERSON from 07/13/2024 FINDINGS: BONES: There is no fracture or contusion pattern. There is a small degenerative subchondral cyst in the region of the tibial spines. JOINTS: A small joint effusion is present. Articular cartilage: Patellofemoral joint: The patella is mildly laterally subluxed. The articular cartilage shows mild t hinning at the lateral facet at no focal defect. Medial femoral tibial joint: Articular cartilage shows mild thinning without focal defects. Lateral femoral tibial joint: Articular cartilage is unremarkable. LIGAMENTS/TENDONS: Anterior Cruciate: Unremarkable some surrounding edema but no visible tear. Posterior Cruciate: Unremarkable. Medial Collateral:Unremarkable. Lateral Collateral ligament complex: Unremarkable. Extensor mechanism: Unremarkable. Medial retinaculum: Unremarkable. Lateral retinaculum: Unremarkable. Popliteus: Unremarkable. MENISCI: The medial meniscus shows some blunting at the apex of the body. There is linear high signal extendi ng to the inferior articular surface of the body. The lateral meniscus is unremarkable. MUSCLES: Unremarkable. SOFT TISSUES: Unremarkable. IMPRESSION: Inferior surfacing tear in the body of the medial meniscus. Small joint effusion. Question of ACL sprain. Mild lateral patellar subluxation. DATA REPOSITORY:
== END 2024-09-04 02:38 ==
LOC: DI 02:18
PROVIDERS: PCP Family Medicine; Visit Provider Student in an Organized Health Care Education/Training Program
DX: S83.241A Other tear of medial meniscus, current injury, right knee, initial encounter (principal); X58.XXXA Exposure to other specified factors, initial encounter
CPT/HCPCS: 73721

== ENCOUNTER 2024-09-12 11:09 | Outpatient (CLI) | payer MEDICAID, SELFPAY ==
[2024-09-12 13:02] LABS: Calculated LDL 129 mg/dL (<100); Cholesterol 210 mg/dL (<200); Estimated GFR 62.91 (mL/min/1.73m2); HDL Cholesterol 49 mg/dL (>or=50); Potassium 4.7 mmol/L (3.5-5.1); Triglyceride 164 mg/dL (<150)
[2024-09-12 13:07] LABS: Hemoglobin A1C 6.5 % (<5.7)
[2024-09-12 18:41] LABS: HBs Antibody, Quant 33.1 mIU/mL (See Note); Hep B Surface Ab Positive (See Note); Hepatitis B Core Antibody Negative (Negative); Hepatitis B Surface Antigen Negative (Negative)
== END 2024-09-12 11:10 | disposition home or self-care (01) ==
LOC: LOS 11:09
PROVIDERS: PCP Family Medicine; Referring Provider Family Medicine; Visit Provider Family Medicine
DX: I10 Essential (primary) hypertension (principal); E78.5 Hyperlipidemia, unspecified; Z11.59 Encounter for screening for other viral diseases; R73.9 Hyperglycemia, unspecified
CPT/HCPCS: 36415; 80061; 86704; 86706; 87340; 82565; 83036; 84132

== ENCOUNTER 2024-09-19 06:13 | Day surgery (SDC) | payer MEDICAID, SELFPAY ==
[2024-09-19] VITALS (48 sets, daily range): BP systolic 91–187; BP diastolic 44–87; PULSE 54–99; RESP 9–20; TEMP 36–36.7; O2SAT 89–97; BMI 33.3
[2024-09-19] MEDS: Lactated Ringers 1,000 ML 30 ML IV (06:56)
--- NOTE | 2024-09-19 07:08 | W.PM.DSUDISC ---
Date of service: 09/19/24 Discharge Plan Disposition Patient Disposition: Home Condition: Stable Discharge Details Attending Provider: Paco Gamble Primary Care Provider: Camron Longoria Home Meds and New Rx's Prescriptions: New naproxen 250 mg tablet 250 - 500 mg PO BID PRN (Reason: Moderate pain) Qty: 40 0RF oxycodone 5 mg tablet 5 - 10 mg PO Q4H PRN (Reason: Moderate to severe pain) Qty: 18 0RF Continued fluticasone propion-salmeterol 500-50 mcg/dose blister with device 1 inh inhalation BID Qty: 180 3RF albuterol sulfate 90 mcg/actuation HFA aerosol inhaler 1 - 2 puff Inhalation Q4H PRN Qty: 18 3RF epinephrine 0.3 mg/0.3 mL auto-injector 0.3 mg IM PRN Qty: 1 1RF tizanidine 2 mg capsule 2 mg PO TID PRN dextroamphetamine-amphetamine [Adderall] 10 mg tablet 10 mg PO BID Rx Instructions: administer doses at least 4-6 hours apart glatiramer [Copaxone] 20 MG kit 20 mg SQ HS meloxicam 15 mg tablet 15 mg PO DAILY Qty: 90 3RF lisinopril 5 mg tablet 5 mg PO DAILY Qty: 90 3RF fenofibrate nanocrystallized [Tricor] 48 mg tablet 48 mg PO DAILY Qty: 90 3RF multivitamin Tablet 1 tab PO DAILY Qty: 90 3RF omega-3 fatty acids 1,000 mg capsule 1,000 mg PO DAILY Qty: 90 3RF calcium carbonate-vitamin D3 1,000 mg-20 mcg (800 unit) tablet 2 tab PO BID Qty: 360 3RF escitalopram oxalate 20 mg tablet 40 mg PO QAM Qty: 180 3RF Rx Instructions: 2 TABS QAM glucosamine sulfate 500 mg tablet 500 mg PO BID Qty: 180 3RF Rx Instructions: administer with meals loratadine 10 mg tablet See Rx Instructions .ROUTE .COMPLEX Qty: 90 4RF Dose Instruction: TAKE ONE TABLET BY MOUTH EVERY DAY Rx Instructions: TAKE ONE TABLET BY MOUTH EVERY DAY rosuvastatin 20 mg tablet 20 mg PO DAILY Qty: 90 3RF metformin 500 mg tablet 500 mg PO BID Qty: 180 3RF Discharge Instructions Additional Instructions: Surgery: Right shoulder arthroscopy with rotator cuff repair (subscapularis & supraspinatus), biceps tenodesis, extensive debridement (including calcium removal), distal clavicle excision, and subacromial decompression 09/19/24 Activity: For 6 weeks, you should keep your arm at your side in a neutral position at all times except for physical therapy. Do not try to lift or raise your arm using your own muscles. You should use the sling whenever you are out of the house. At home it is best to remove the sling and rest the arm on a pillow at your side or support the operative side with your other hand. You may allow the arm to dangle at your side. A physical therapy prescription will be sent electronically to begin in about 3 weeks. CONSERVATIVE protocol. Prescriptions: Naproxen 250 mg take 1-2 every 12 hours with a meal as needed for moderate pain Oxycodone 5 mg take 1-2 every 4-6 hours as needed for severe pain You may use [id number] Tylenol (acetaminophen) as needed for mild pain. These pain medications may be taken all at once or in different combinations as needed. Also, recommend Colace (docusate) as a stool softener as surgery and pain medicine cause constipation. You may try [id number] diphenhydramine (Benadryl) 25-50 mg nightly as a sleep aid Dressings: Remove shoulder bandage after 3 days. Leave the sticky Steri-Strips in place until they fall off or remove them after you shower. Cover the incisions with Band-Aids or leave them open to air. You may shower after 5 days. Follow-up: 10-[address] Gamble You may take off the leg compression stockings this evening at home. You may also leave them on a few days longer if you have a history of leg swelling or edema. Let us know right away if you develop any redness, drainage, fevers, chest pain, or trouble breathing. Do not drink alcohol or drive for at least 24 hours after anesthesia. Please call the office during business hours with any questions or concerns. Discharge Orders Discharge Orders: Discharge Order (Routine); Ordered 09/19/24 Ordered By: Sidney Calzada DS: Diagnosis Discharge Diagnosis (1) Rotator cuff tear, right: Status: Acute (2) Calcific tendinitis of right shoulder: Status: Acute (3) Tendonitis of long head of biceps brachii of right shoulder: Status: Acute (4) Arthritis of right acromioclavicular joint: Status: Acute (5) Impingement syndrome of right shoulder: Status: Acute
--- NOTE | 2024-09-19 07:09 | W.ANESPRE ---
General Info Date of Service Date Performed: 09/19/24 Height: 5 ft 3 in Weight: 85.4 kg Body Mass Index (BMI): 33.3 Surgical Procedure: Operation Date: 09/19/24 07:40 Proposed Procedure Side Surgeon p Shoulder Rotator Cuff Arthroscopic w/Extensive Debridement, Biceps Tenodesis, Subacromial Decompression, Distal Clavicle Excision Right Paco Gamble MD Meds Allergies and Home Medications Allergies Allergy/AdvReac Type Severity Reaction Status Date / Time tree nut Allergy Intermediate Nausea Verified 09/19/24 06:22 Penicillins Allergy Mild HIVES- A Verified 09/19/24 06:22 CHILD celecoxib (From Celebrex) AdvReac Unknown Nausea Verified 09/19/24 06:22 Home Medication ?Medication ?Instructions ?Recorded glatiramer 20 mg/mL subcutaneous 20 mg SQ HS 04/03/13 syringe (Copaxone) epinephrine 0.3 mg/0.3 mL 0.3 mg (0.3 mL) IM PRN #1 pen 12/03/19 injection, auto-injector tizanidine 2 mg capsule 2 mg PO TID PRN 09/14/23 meloxicam 15 mg tablet 15 mg PO DAILY #90 tabs 11/25/23 dextroamphetamine-amphetamine 10 10 mg PO BID 01/10/24 mg tablet (Adderall) lisinopril 5 mg tablet 5 mg PO DAILY #90 tabs 01/19/24 fenofibrate nanocrystallized 48 mg 48 mg PO DAILY #90 tabs 02/15/24 tablet (Tricor) multivitamin 1 tab PO DAILY #90 tabs 02/15/24 omega-3 fatty acids 1,000 mg 1,000 mg PO DAILY #90 caps 02/15/24 capsule calcium 1,000 mg (as 2 tab PO BID #360 tabs 04/11/24 carbonate)-vitamin D3 20 mcg (800 unit) tablet escitalopram oxalate 20 mg tablet 40 mg (2 x 20 mg) PO QAM #180 05/09/24 tab-caps glucosamine sulfate 500 mg tablet 500 mg PO BID #180 tabs 05/09/24 loratadine 10 mg tablet See Rx Instructions .Route 08/10/24 .COMPLEX #90 tabs albuterol sulfate 90 mcg/actuation 1 - 2 puff inhalation Q4H PRN #18 09/12/24 aerosol inhaler grams fluticasone 500 mcg-salmeterol 50 1 inh inhalation BID #180 ea 09/12/24 mcg/dose blistr powdr for inhalation metformin 500 mg tablet 500 mg PO BID #180 tabs 09/12/24 rosuvastatin 20 mg tablet 20 mg PO DAILY #90 tabs 09/12/24 naproxen 250 mg tablet 250 - 500 mg (1 - 2 x 250 mg) PO 09/19/24 BID PRN Moderate pain #40 tabs oxycodone 5 mg tablet 5 - 10 mg (1 - 2 x 5 mg) PO Q4H 09/19/24 PRN Moderate to severe pain #18 tabs Current Visit Medications: Current Medications Generic Name Dose Route Start Last Admin Trade Name Freq PRN Reason Stop Dose Admin Ringer's Solution 1,000 mls @ 30 mls/hr 09/19/24 06:00 09/19/24 06:56 IV 09/19/24 23:59 30 mls/hr INFUSION ULISES Administration Cefazolin Sodium/Dextrose 2 gm in 50 mls @ 100 mls/hr 09/19/24 06:00 Ancef Duplex IVPB 09/19/24 23:59 PREOP ULISES Tranexamic Acid/Sodium Chloride 1,000 mg in 100 mls @ 600 mls/hr 09/19/24 06:00 IVPB 09/19/24 23:59 PREOP ULISES IV Miscellaneous Supplies 1 each 09/19/24 06:00 Iv Access IV 09/19/24 23:59 DIRECTED ULISES Sodium Chloride 0 ml 09/19/24 06:00 Normal Saline Flush 10 Ml Syr IV 09/19/24 23:59 PRN PRN Sodium Chloride 0 ml 09/19/24 06:00 Normal Saline 10 Ml Vial IJ 09/19/24 23:59 DIRECTED PRN Sterile Water 0 ml 09/19/24 06:00 Water,Injection,Sterile 10 Ml Vial IJ 09/19/24 23:59 DIRECTED PRN PFSH Active Problems Active Problems: Problem Status Onset Code Arthritis of right acromioclavicular joint Acute M19.011 Tendonitis of long head of biceps brachii of right shoulder Acute M75.21 Internal derangement of right knee Acute M23.91 Osteoarthritis of right shoulder Acute M19.011 Rotator cuff tear, right Acute M75.101 Sacroiliac joint dysfunction of both sides Acute M53.3 Sacroiliac joint dysfunction of left side Acute M53.3 COVID-19 Acute ~03/02/22 U07.1 Postmenopausal hormone therapy Acute Z79.890 Stress incontinence Acute N39.3 Asthma Acute 11/13/13 J45.909 Anxiety Acute F41.9 Depressive disorder Acute F32.9 Essential hypertension Acute I10 Hyperlipidemia Acute E78.5 Insomnia Acute G47.00 Low back pain Acute M54.5 Malignant melanoma of torso excluding breast Acute 12/01/16 C43.59 Multiple sclerosis Acute G35 Obesity Acute E66.9 Pinworms Acute 01/15/15 B80 Allergic rhinitis Acute J30.9 Shoulder pain, right Acute M25.511 Ear pain, right Acute H92.01 Adjustment disorder Chronic F43.20 Lumbar back pain Acute M54.5 Neck pain Acute M54.2 Incontinence of feces Acute R15.9 Screening for colon cancer Acute Z12.11 Medical History Medical History Normal colonoscopy Asthma Multiple sclerosis Hyperlipidemia Depression Anxiety Essential hypertension Low back pain Insomnia Surgical History Surgical History Hx of tonsillectomy Ligation of fallopian tube Vaginal hysterectomy 11/17/10 Excision, Skin Mass (12/01/16) right chest Colonoscopy - MAC 09/202104/04/11 Cholecystectomy Reduction mammoplasty Tobacco Smoking/Tobacco Use Status: Never Passive smoking exposure: No Alcohol Alcohol Intake: current Alcohol intake frequency: holidays/special occasions only Alcohol type: beer Substance Use Substance use: Never Substance use type: does not use Prental History History 3 Para Hx # Term Pregnancies Multiple births Hx # Pregnancies Ectopic pregnancies AB induced Hx Number of Living Children AB spontaneous Past Pregnancies Del. Date GA/Weeks # Preg Succ Route Wgt Sex Labor Lgth Anesthesia Location Prov Complic Unknown 34 No Yes vaginal Male [place]- 08/1979 Unknown [address] Yes [address] Male [facility] 07/198302/22/[address] [facility]- 02/22/1985 Delivery Date: Last Updated by: Anabelle Staton Per pt report forceps were used and baby was early d/t gallbladder attack. Delivery Date: 02/22/85 Last Updated by: Anabelle Staton for breech presentation Vital Signs and Lab Results Vital Signs Most Recent Vital Signs in EMR: Most Recent Vital Signs Temp Pulse Resp BP Pulse Ox 36.5 C 62 20 143/70 H 95 09/19/24 06:28 09/19/24 06:28 09/19/24 06:28 09/19/24 06:28 09/19/24 06:28 Lab Results Blood Type / Crossmatch: No Data to Display Complete Blood Count: No Data to Display Complete Metabolic Panel: Potassium 4.7 mmol/L (3.5-5.1) 09/12/24 11:21 Creatinine 1.0 mg/dL (0.55-1.02) 09/12/24 11:21 Est GFR (CKD-EPI 2020) 62.91 (mL/min/1.73m2) 09/12/24 11:21 Hemoglobin A1c 6.5 % (<5.7) H 09/12/24 11:21 Liver Function Panel: No Data to Display Coagulation Panel: No Data to Display Cardiac Panel: No Data to Display Arterial Blood Gas: No Data to Display Venous Blood Gas: No Data to Display Pancreas Panel: No Data to Display Thyroid Panel: No Data to Display Infectious Disease: Hepatitis B Surface Antigen Negative (Negative) 09/12/24 11:21 Blood Cultures: No Data to Display Toxicology Panel: No Data to Display Anesthesia Assessment and Plan Anesthesia History Personal History: No History of Anesthesia Complications Family History: No Family History of Anesthesia Complications Exercise Tolerance Exercise Tolerance: Metabolic Equivalents>4 Pertinent Negatives Pertinent Negatives: No Symptoms of GERD, No Major Cardiovascular Symptoms or Complaints, No Major Pulmonary Symptoms or Complaints and No History of CVA/TIA Cardiac & Pulmonary Exam Cardiac Exam: Normal S1/S2 Heart Sounds Pulmonary Exam: Clear Bilateral Breath Sounds Implantable Cardiac Device Does patient have a Pacemaker or an ICD?: No Airway Exam Known Difficult Airway: No Mallampati Class: 2 Mouth Opening: Normal (> 3cm) Thyromental Distance: Less than 3 cm Neck Range of Motion: Full ROM Neck Circumference: Thick Teeth Condition: Normal Dentition ASA Classification ASA Score: ASA 2 Emergency Case?: No NPO Status NPO Status: NPO Clears >2 hours, Solids >8 hours Anesthesia Plan Resuscitation Status: Full Code Anesthesia Technique: General Anesthesia Airway Planned: Endotracheal Tube Pain Management: Surgeon and patient request nerve block Monitors Used: Standard Monitors
--- NOTE | 2024-09-19 07:17 | W.PM.OP ---
Operative Note Operative Note PRE-OP DIAGNOSIS: Right: 1. Rotator cuff tear 2. LHB tendinopathy 3. Calcific tendinitis 4. Impingement 5. ACJ arthritis POST-OP DIAGNOSIS: same PROCEDURE: Right: 1. Rotator cuff repair, CPT# 46508. This involved repair of the subscapularis and supraspinatus using anchors and sutures to reattach the rotator cuff back to the footprint of the lesser and greater tuberosity. 2. Arthroscopic biceps tenodesis, CPT# 55531. This involved arthroscopically suturing and reattaching the long head of the biceps tendon to the proximal humerus at the superior margin of the bicipital groove with a screw at the correct tension. 3. Extensive debridement, CPT# 20211. This involved using arthroscopic hand instruments, power instruments, and radiofrequency instruments to release the long head of the biceps tendon and debride areas of labral tearing, synovitis, and remove calcium from the infraspinatus working within the glenohumeral joint and subacromial spaces. 4. Subacromial decompression with partial acromioplasty, CPT# 95090. This involved using arthroscopic power instruments and a radiofrequency wand to complete a bursectomy and smooth the undersurface of the acromion. 5. Arthroscopic distal clavicle excision, CPT# 05299. This involved arthroscopically exposing the underside of the acromioclavicular joint, smoothing out bone spurs, and removing enough distal clavicle so there was no bone left engaging the acromion. The special education educational assistant was medically required in order to help assist in techniques above, which require positioning the arm, holding the arthroscope, and manipulating multiple instruments and sutures at the same time. This cannot be done without the help of an experienced special education educational assistant. SURGEON: Paco Gamble HYDRAULIC ROCKBREAKER OPERATOR: Sidney Calzada ANESTHESIA TYPE: Local By Surgeon, General LMA/ETT and Primary Nerve Block Refer to Anesthesia Record ESTIMATED BLOOD LOSS: 10 PATHOLOGY: none sent COMPLICATIONS: None Patient was transported to: PACU Patient's condition: stable Implants: Arthrex: 4.75mm SwiveLocks x 5 Indications: The patient was diagnosed with the above conditions and appropriately indicated for surgical intervention. Please see complete medical record for details. Findings: Exam under anesthesia: Full range of motion, no instability Glenohumeral joint: Significant synovitis, disrupted chronic?appearing subscapularis retracted tear with retracted [facility] L, moderate monsalve labral degeneration fraying and tearing. Moderate central glenoid and anterior humeral head chondromalacia. Exposed lesser tuberosity. Full-thickness void complete supraspinatus tear chronic bony changes. Delaminated tearing. Subacromial space: Moderate bursitis, moderate narrowing subacromial space. Impinging distal clavicle inferiorly acromion and inferiorly under hanging acromion bone spur. Complete supraspinatus tear with moderate retraction and moderate lateral tendon remnant. Somewhat delaminated and not completely healthy. Partial infraspinatus involvement and small calcium deposit lateral infraspinatus in an area of hemorrhagic tendinitis. Procedure Description: In the operating room, general anesthesia was induced. Bilateral shoulders were examined. The patient was positioned in the beachchair position. All bony prominences were well-padded. Preoperative antibiotics were administered. The shoulder was prepped and draped in the usual sterile fashion. The correct patient, procedure, and side of the procedure were all verified prior to incision. Starting through the posterior portal a standard complete diagnostic arthroscopy was performed of the glenohumeral joint including inspection of the long head of the biceps, anterior and superior labrum, subscapularis tendon, supraspinatus and infraspinatus tendons, and axillary recess. The glenoid and humeral head cartilage as well as the posterior labrum were inspected from an anterior viewing portal. Significant findings and interventions noted above. Of note, the chondromalacia and chronic fibrous bony changes were debrided thoroughly. The [facility] L anterior capsular release to allow for excursion and repair of the subscapularis. Labrum was contoured and debrided nicely anterior superiorly and to a lesser extent posteriorly. The infraspinatus was thoroughly inspected and using the cuff grasper the area of firm nodule and inflammation was then localized, punctured with a spinal needle, and then calcium expressed and removed with the mechanical shaver clearing the deposit from the infraspinatus. Starting through the full-thickness tear, the biceps tendon was secured with a suture tape FiberLink tenotomized for superior labrum. Was retracted the superior aspect of the bicipital groove for later repair with the rotator cuff. The lesser tuberosity was prepared for healing. The subscapularis and [facility] L were released. It was somewhat chronic but had reasonable excursion, improved once released toward the prepared lesser tuberosity. It was secured at the upper lateral corner with a suture tape FiberLink with retraction used to place a more medial and deeper in the body FiberTape. The repair was localized to the lesser tuberosity, punch, and repair suture secured to a 4.75 mm SwiveLock anchor with excellent reduction and good strength. No restriction to external rotation stable through about 45 degrees and rotation. There is more appropriate mandaeism of the anterior and rotator interval spaces. Starting through the posterior portal, the arthroscope was directed into the subacromial space. A lateral 50 yard line lateral portal was created. A combination of power instruments and a radiofrequency ablator were used to debride bursitis anteriorly, posteriorly, and laterally as well as expose and smooth bone spurring on the undersurface of the acromion. The coracoacromial ligament was released. The bursectomy was completed viewing laterally and working from posteriorly and the rotator cuff was thoroughly inspected with findings noted above. The anterior portal was redirected towards the undersurface of the AC joint. A shaver and electrocautery device were used to clear soft tissue from the undersurface of the AC joint. The distalmost few millimeters of the distal clavicle was then removed and smoothed. Care was taken to alternate between working through the anterior portal and viewing through the anterior portal to ensure that proper amount of bone was removed and there was no engaging bone left behind especially superiorly. The posterior lateral rotator cuff, infraspinatus was then inspected the grasper could detect a calcium firm deposit which was released with a spinal needle and squeezing with the cuff grasper and then removed with the mechanical shaver. The large full-thickness somewhat delaminated supraspinatus tear was then inspected, edges prepared and optimized for healing as well as the bony footprint. The lateral soft tissue remnant was removed for a double row repair. The anterior medial row anchor was loaded with the biceps tenodesis suture as well as FiberTape's and knotless repair mechanism. The biceps was tension at the superior aspect of bicipital groove and secured with the suture anchor and the knotless mechanism you data additional fixation to the construct. Biceps was stable on direct arm testing. The second posterior medial row anchor was then placed preloaded with fiber tapes. The fiber tapes were then shuttled through the appropriate location in the medial rotator cuff using FiberLink's. A single anterior and posterior tape was then brought out laterally and the rigid clear cannula insert used to localize placement for the lateral row. The large tear had good excursion and provisional reduction. An additional suture tape FiberLink in cinch mode was then placed anteriorly and centrally and with the fiber tape tails secured to an anterior lateral anchor. Similarly the remaining tapes were brought out laterally and additional posterior suture tape fiber link placed and all secured to a posterior lateral anchor. There was good reduction and compression anterior to posteriorly with some tissue rotator cuff loss centrally laterally ongoing to the lateral remnant but excellent overall reduction, compression over the paired footprint, and stable through probing and motion. The shoulder was drained of arthroscopic fluid. All portal sites were copiously irrigated. These incisions were closed using 3-0 Monocryl in a buried fashion and then covered with Mastisol, Steri-Strips, Xeroform, dry gauze, and ABDs. The dressings were covered and secured with Medipore tape. The operative extremity was placed into a sling for immobilization. The patient awoke from anesthesia without complication and was transferred to the recovery room in a stable condition. Date of Procedure: 09/19/24
--- NOTE | 2024-09-19 07:36 | W.ANESNERVE ---
Nerve Block Single Injection Procedure Date and Time Date Performed: 09/19/24 Procedure Start: 07:24 Location Where Procedure Performed Procedure Location: Day Surgery Unit Reason Performed: Postoperative Analgesia Requesting Provider: Paco Gamble Timeout Performed Timeout Performed: Yes Monitoring Used ECG, Blood Pressure, SpO2 and See EMR for corresponding vital signs Sterility Sterility: Hand Hygiene, Surgical Cap, Surgical Mask, Sterile Gloves and Chlorhexidine Sedation Given During Procedure Sedation Given (Indicate Dose Given): Versed IV Dose:: 2 mg Patient Mental Status Patient Mental Status: Sedate with meaningful communication Nerve Block 1st Nerve Block: Laterality: Right Block Type: Interscalene Ultrasound Image Saved?: Yes Needle / Catheter Used: 100mm SonoPlex II Local Anesthetic Bolus (Indicate Dose Given): Lidocaine used for local infiltration of skin, Injected in 3-5ml increments after negative blood aspiration, Bupivacaine 0.25% Dose:: 10 ml and Exparel Dose:: 10 ml Additives (Indicate Dose Given): None Ultrasound: Sterile probe cover and gel used Nerve Stimulator: Supplement to Ultrasound use and No twitch or parasthesia noted < 0.5 mA Paresthesia: None Procedure Tolerated: No Complications and Patient tolerated well Procedure Outcome: Successful Procedure Comment: Difficult to obtain desired view due to very short neck. Block performed more inferior, between interscalene and supraclavicular locations. Difficult to lift arm and feels heavy per patient 10-15 minutes after block. Performed By: Tanesha Escalona
[2024-09-19] MEDS: ceFAZolin 2 GM/50 ML BAG IVPB (07:42)
[2024-09-19] MEDS: TRANEXAMIC ACID/SOD. CHL. 1,000 MG/100 ML BAG 600 MG IVPB (07:55)
[2024-09-19] MEDS: Bupivacaine 0.25% Pres-Free W/EPI 30 ML VIAL (08:29)
[2024-09-19] MEDS: EPINEPHrine 10 MG/10 ML ML (10:03)
[2024-09-19] MEDS: ePHEDrine 25 MG/5 ML Syringe IVP (10:42)
[2024-09-19] MEDS: Normal Saline 10 ML VIAL IJ (11:13)
[2024-09-19] MEDS: HYDROmorphone 2 MG/ML SYR IVP ×3 (11:13→11:43)
[2024-09-19] MEDS: oxyCODONE 5 MG TAB PO (13:58)
--- NOTE | 2024-09-19 14:52 | W.ANESPOSTOP ---
Postoperative Evaluation Date, Time and Location Date Performed: 09/19/24 Time Performed: 14:52 Patient Location: Day Surgery Unit Vital Signs Most Recent Imported Vital Signs: Most Recent Vital Signs Temp Pulse Resp BP Pulse Ox 36.2 C L 87 18 159/76 H 95 09/19/24 14:25 09/19/24 14:25 09/19/24 14:25 09/19/24 14:25 09/19/24 14:25 Pain Score Most Recent Pain Score: Most Recent Pain Score Pain Level 8 09/19/24 14:25 Assessment Mental Status: Awake (Alert & Oriented to Patient Baseline) Airway and Respiratory Function: Abnormal Respiratory exam (See explanation) (Patient having issues weaning. We will continue to work with her. ) Cardiovascular Function: Hemodynamically Stable Hydration Status: Adequately Hydrated Nausea & Vomiting: No Nausea or Vomiting Pain: Pain is Moderate or Severe Postoperative Pain Management: Pain being addressed with medication Peripheral Nerve Block: Regional nerve block not resolved at time of post operative discharge Postoperative Comments:: Dr. Gamble at bedside, discussion related to potential inpatient stay for pain and resp, or heading home. Not decided at this point will continue to monitor.
[2024-09-19] MEDS: Naproxen 250 MG TAB PO (15:26)
[2024-09-19] MEDS: Lisinopril 5 MG TAB PO (15:26)
[2024-09-19] MEDS: Acetaminophen 500 MG TAB 1000 MG PO (15:27)
== END 2024-09-19 16:35 | disposition home or self-care (01) ==
PROVIDERS: PCP Family Medicine; Visit Provider Student in an Organized Health Care Education/Training Program
PROC: (CPT 29827; principal; 2024-09-19 07:30)
DX: M75.101 Unspecified rotator cuff tear or rupture of right shoulder, not specified as traumatic (principal); M75.31 Calcific tendinitis of right shoulder; M75.21 Bicipital tendinitis, right shoulder; M19.011 Primary osteoarthritis, right shoulder; M75.41 Impingement syndrome of right shoulder; G89.18 Other acute postprocedural pain
CPT/HCPCS: 29827; 29828; 29823; 29824; 29826; 64415; J0360; J0665; J0666; J0690; J1100; J1171; J1805; J1885; J2250; J2405; J2704; J3010

== ENCOUNTER 2024-10-03 00:41 | Outpatient (CLI) | payer MEDICAID, SELFPAY ==
--- NOTE | 2024-10-03 08:30 | DI.MRI_ITS ---
Exam(s) MR UPPER JOINT RT WO EXAM: MR UPPER JOINT RT WO CLINICAL HISTORY: S/P SURGERY 4/3, RECENT INJURY-EVALUATE BICEPS, S46.211A. TECHNIQUE: Multiplanar multisequence MRI was performed. COMPARISON: 30 August 2024 Plain films 13 July 2024 FINDINGS: BONES: There is no fracture or contusion pattern. Postsurgical changes anchors in the humeral head. JOINTS:The acromioclavicular joint shows degenerative changes with mild inferior spurring as well as some fluid. The glenohumeral joint shows of fluid TENDONS: Supraspinatus: Area of high signal noted in the distal supraspinatus tendon at the appearance of a fu ll-thickness tear. It is possible the findings could be related to prior surgery. Infraspinatus: Unremarkable. Subscapularis: Unremarkable. Teres Minor: Unremarkable. Biceps and Loyal: Marked thickening and edema of the biceps tendon proximally at the level anterior to the humeral head. Abnormal high signal is noted in the biceps anchor. The most proximal portion of the tendon near the anchor is not visualized. This is suspicious for full-thickness tear of the. The more distal tendon is normally located and shows normal signal. MUSCLES: Unremarkable. No significant atrophy. GLENOID LABRUM: Unremarkable on this noncontrast examination. SOFT TISSUES: Unremarkable. BURSAE: Subacromial and subdeltoid bursae shows a small amount of fluid. Fluid is also noted in the sub coracoid bursa and extending along the subscapularis muscle and tendon. IMPRESSION: Proximal portion of the biceps tendon is not visualized at the anchor. There is abnormal signal in t he anchor is well as thickening of the biceps tendon at the level of the humeral head. The findings are consistent with full-thickness tear and mild retraction. The more distal biceps tendon at the hu meral shaft a appears normal and is normally located. Question of tear of the anterior supraspinatus tendon versus postsurgical changes. DATA REPOSITORY:
== END 2024-10-03 01:01 ==
LOC: DI 00:41
PROVIDERS: PCP Family Medicine; Visit Provider Student in an Organized Health Care Education/Training Program
DX: S46.211A Strain of muscle, fascia and tendon of other parts of biceps, right arm, initial encounter (principal); X58.XXXA Exposure to other specified factors, initial encounter
CPT/HCPCS: 73221

== ENCOUNTER 2025-04-02 13:57 | Outpatient (CLI) | payer MEDICAID, SELFPAY ==
--- NOTE | 2025-04-02 10:15 | DI.RAD_ITS ---
Exam(s) XR SHOULDER RT COMPLETE 2+V EXAM: XR SHOULDER RT COMPLETE 2+V CLINICAL HISTORY: RIGHT SHOULDER PAIN. TECHNIQUE: 2D digital imaging was performed. Two views. COMPARISON: MR MR UPPER JOINT RT WO from 10/03/2024 FINDINGS: BONES: No acute fracture is present. No bony destructive lesion is seen. There are postsurgical lucencies in the humeral head. JOINTS: No dislocation present. There is no significant spurring at the AC joint. There is mild spurring at the inferior aspect of the acromion. Glenohumeral joint space is maintained. There is spurring from the margin of the glenoid and inferior humeral head. The humeral head is normally positioned. SOFT TISSUE: Normal. IMPRESSION: Mild degenerative changes and postsurgical changes. DATA REPOSITORY: RADIATION DOSE DELIVERED:
== END 2025-04-02 13:58 | disposition home or self-care (01) ==
LOC: DIORS 13:57
PROVIDERS: PCP Family Medicine; Visit Provider Student in an Organized Health Care Education/Training Program
DX: S46.211A Strain of muscle, fascia and tendon of other parts of biceps, right arm, initial encounter (principal); M75.101 Unspecified rotator cuff tear or rupture of right shoulder, not specified as traumatic; M19.011 Primary osteoarthritis, right shoulder
CPT/HCPCS: 73030

== ENCOUNTER 2025-04-10 15:59 | Outpatient (CLI) | payer MEDICAID, SELFPAY ==
--- NOTE | 2025-04-10 10:00 | DI.RAD_ITS ---
Exam(s) XR KNEE RT 3V AP,LAT,JERSON EXAM: XR KNEE RT 3V AP,LAT,JERSON CLINICAL HISTORY: right knee injury. TECHNIQUE: 2D digital imaging was performed of the right knee. Three views obtained. Merchant, AP and lateral views were obtained. COMPARISON: CR XR KNEE RT 3V AP,LAT,JERSON from 07/13/2024 FINDINGS: BONES: No acute fracture is present. No bony destructive lesion is seen. JOINTS: There is mild narrowing of the lateral femoral tibial joint. There is a joint effusion present. SOFT TISSUE: There well corticated old osseous densities lateral to the patella. IMPRESSION: 1. Mild joint space narrowing. 2. Joint effusion. DATA REPOSITORY: RADIATION DOSE DELIVERED:
== END 2025-04-10 16:00 | disposition home or self-care (01) ==
LOC: DIORS 16:00
PROVIDERS: PCP Family Medicine; Visit Provider Physician Assistant
DX: M23.91 Unspecified internal derangement of right knee (principal); M25.861 Other specified joint disorders, right knee
CPT/HCPCS: 73562

== ENCOUNTER 2025-04-16 01:24 | Outpatient (CLI) | payer MEDICAID, SELFPAY ==
--- NOTE | 2025-04-16 08:55 | DI.MRI_ITS ---
Exam(s) MR UPPER JOINT RT WO EXAM: MR UPPER JOINT RT WO CLINICAL HISTORY: R SHOULDER PAIN,RUPTURE RT PROX BICEPS TENDON,RT ROTATOR CUFF TEAR TECHNIQUE: Multiplanar multisequence MRI of the shoulder was performed. COMPARISON: MR MR UPPER JOINT RT WO from 10/03/2024 CR XR SHOULDER RT COMPLETE 2+V from 04/02/2025 CR XR KNEE RT 3V AP,LAT,JERSON from 04/10/2025 FINDINGS: MARROW:There is no evidence of fracture, Hill-Sachs deformity, nor ominous osseous lesions. There is evidence of previous surgery with fastener devices in the humeral head anteriorly and laterally. GLENOHUMERAL JOINT: Mild degenerative changes evident. No degenerative subarticular cysts. No osteophytes. Small joint effusion noted. There are no obvious loose intra-articular bodies. ROTATOR CUFF MECHANISM: AC JOINT/ACROMIUM: Moderate degenerative changes in the AC joint.. There is no evidence of os acromiale. Supraspinatus: There is a full-thickness tear of the supraspinatus tendon. There is retraction to the mid humeral head level. The maximum AP measurement of the tear is 2 cm. There is fluid in continuity between the joint space and the subacromial-subdeltoid bursa. There is no prominent muscle atrophy. Infraspinatus: Insertional tendinitis and there appears to be partial thickness tearing at the conjoined insertional level. No muscle atrophy. Teres Minor: Intact. No evidence of tear nor muscle atrophy. Subscapularis/anterior cuff: Tendon appears thin but without full-thickness tear. BICEPS TENDON: Intra-articular aspect is not well visualized and suspicious for significant tearing. LABRUM: No evidence of superior labral tear. Mild irregularity of the posterior labral surface. There is linear fluid invagination into the anterior labrum above the equator consistent with tear which was not evident on the prior MRI of September 2024. Inferior labrum appears intact. Inferior glenohumeral ligament appears intact. Synovial thickening is noted in the inferior recess. IMPRESSION: 1. There is now a prominent tear of the rotator cuff supraspinatus tendon as described above. There is also insertional tendinitis and partial-thickness tearing of the infraspinatus tendon. There is thinning of the subscapularis tendon 2. There is evidence of new tear in the anterior labrum within linear fluid invagination evident on the axial images. 3. Biceps tendon is not visualized above the inter tubercular groove. Possibly from tearing versus anterior humeral head level tenodesis. DATA REPOSITORY:
== END 2025-04-16 01:44 ==
LOC: DI 01:24
PROVIDERS: PCP Family Medicine; Visit Provider Student in an Organized Health Care Education/Training Program
DX: S46.211A Strain of muscle, fascia and tendon of other parts of biceps, right arm, initial encounter (principal); M75.101 Unspecified rotator cuff tear or rupture of right shoulder, not specified as traumatic
CPT/HCPCS: 73221

== ENCOUNTER 2025-04-16 01:57 | Outpatient (CLI) | payer MEDICAID, SELFPAY ==
[2025-04-16 09:28] LABS: Abs Immature Grans 0.01 10^3/uL (0.0-0.06); HCT 39.4 % (36.0-46.0); HGB 12.5 g/dL (11.2-15.7); Immature Grans % 0.1 %; MCH 28.3 pg (27.0-33.0); MCHC 31.7 % (32.0-36.0); MCV 89 fL (80-95); MPV 10.9 fL (8.0-11.0); Platelet Count 213 10^3/uL (130-400); RBC 4.41 10^6/uL (3.93-5.22); RDW 13.2 % (11.7-14.6); RDW-SD 42.9 fL; WBC 6.92 10^3/uL (4.4-10.8)
[2025-04-16 09:41] LABS: ESR 4 mm/hr (0-30)
[2025-04-16 10:18] LABS: C-Reactive Protein < 0.50 mg/dL (<or=0.5)
== END 2025-04-16 01:58 | disposition home or self-care (01) ==
LOC: LBO 01:57
PROVIDERS: Student in an Organized Health Care Education/Training Program; PCP Family Medicine; Visit Provider Student in an Organized Health Care Education/Training Program
DX: M75.101 Unspecified rotator cuff tear or rupture of right shoulder, not specified as traumatic (principal)
CPT/HCPCS: 36415; 85652; 85025; 86140

== ENCOUNTER → 2025-05-02 03:08 | Outpatient (CLI) | payer MEDICAID, SELFPAY ==
--- NOTE | 2025-05-02 07:30 | DI.CT_ITS ---
Exam(s) CT UPPER EXTREMITY RT WO EXAM: CT UPPER EXTREMITY RT WO CLINICAL HISTORY: SURGICAL PLANNING,RT ROTATOR CUFF ARTHROPATHY,M12.811,M75.101 TECHNIQUE: Imaging Protocol: Axial computed tomography images with coronal and sagittal reformatted images were created and reviewed. CONTRAST MATERIAL: Noncontrast COMPARISON: CR XR SHOULDER RT COMPLETE 2+V from 04/02/2025 FINDINGS: Bones: There is no evidence of fracture or dislocation. Bony alignment is satisfactory. No cellulitic or osteomyelitic changes are identified. No suspicious lytic or sclerotic lesions are identified. There are postsurgical lucencies in the humeral head related to rotator cuff surgery. Joints: The AC joint shows mild spurring. There is mild spurring at the tip of the acromion. There is mild spurring at the glenoid and inferior humeral head. Soft Tissues: Normal. IMPRESSION: Mild degenerative changes of the AC joint and glenohumeral joint. Postsurgical changes in the humeral head. RADIATION DOSE DELIVERED: Total DLP DATA REPOSITORY: All CT scans at this facility are submitted to the National Radiology Data Registry (NRDR) Dose Index Registry (DIR) with the [employer] (A[employer]). RADIATION OPTIMIZATION: All CT scans at this facility use at least one of these dose optimization techniques: automated exposure control; mA and/or kV adjustment per patient size (includes targeted exams where dose is matched to clinical indication); or iterative reconstruction.
== END ==
LOC: DI 03:09
PROVIDERS: PCP Family Medicine; Visit Provider Student in an Organized Health Care Education/Training Program
DX: M75.101 Unspecified rotator cuff tear or rupture of right shoulder, not specified as traumatic (principal); M12.811 Other specific arthropathies, not elsewhere classified, right shoulder
CPT/HCPCS: 73200

== ENCOUNTER 2025-05-05 02:03 | Outpatient (CLI) | payer MEDICAID, SELFPAY ==
[2025-05-05 15:27] LABS: Hemoglobin A1C 6.7 % (<5.7)
[2025-05-05 15:33] LABS: ALT 22 U/L (10-49); AST 22 U/L (<34); Albumin 4.6 g/dL (3.4-5.0); Alkaline Phosphatase 38 U/L (46-116); Anion Gap 10.2 mmol/L (3-11); BUN 26 mg/dL (9-23); Bilirubin, Total 0.30 mg/dL (0.2-1.2); CO2 23.8 mmol/L (20.0-31.0); Calcium 9.3 mg/dL (8.3-10.6); Chloride 113 mmol/L (98-107); Cholesterol 159 mg/dL (<200); Glucose 115 mg/dL (74-106); HDL Cholesterol 39 mg/dL (>40); Potassium 4.4 mmol/L (3.5-5.1); Sodium 147 mmol/L (136-145); Total Protein 7.1 g/dL (5.7-8.2)
== END 2025-05-05 02:04 | disposition home or self-care (01) ==
LOC: LOS 02:03
PROVIDERS: PCP Family Medicine; Visit Provider Nurse Practitioner Family
DX: Z00.00 Encounter for general adult medical examination without abnormal findings (principal); F41.9 Anxiety disorder, unspecified; F32.9 Major depressive disorder, single episode, unspecified; I10 Essential (primary) hypertension; E78.5 Hyperlipidemia, unspecified; E66.9 Obesity, unspecified; J45.909 Unspecified asthma, uncomplicated
CPT/HCPCS: 36415; 80053; 80061; 83036

== ENCOUNTER → 2025-05-14 01:12 | Outpatient (CLI) | payer MEDICAID, SELFPAY ==
--- NOTE | 2025-05-14 12:56 | DI.MAMMO_ITS ---
Exam(s) MAMMO SCREENING EXAM: MAMMO SCREENING CLINICAL HISTORY: screening,Z12.39 TECHNIQUE: Bilateral full field digital CC and MLO mammographic images were obtained with 3D tomosynthesis and utilizing computer aided detection (CAD). COMPARISON: Comparison is made with prior examinations. FINDINGS: Masses/Architectural Distortion: No suspicious masses or areas of architectural distortion are present. Microcalcifications: No suspicious pleomorphic-type are seen. Skin Thickening/Nipple Retraction: None. IMPRESSION: 1. No significant interval change with no specific features of malignancy noted. 2. Unless there is more urgent need, screening mammography is recommended, as per [place] [employer] guidelines. BI-RADS Category 1 - Negative Breast Density - Category A - The breast are almost entirely fatty. Breast density Category C or D implies that the patient has dense breast tissue. Dense breast tissue can make it harder to find cancer on a mammogram. Dense breast tissue is also associated with an increased risk of breast cancer. This information about the result of the mammogram report was provided to the patient to raise their awareness. Use this report when you speak with the patient about their risks for breast cancer, which includes their family history. At that time, you may recommend additional screening tests (Ultrasound or MRI) as these tests may add significant information. A negative radiographic report should not delay biopsy if a dominant or clinically suspicious mass is present. Up to ten percent of cancers are not identified on mammography. A negative report may reinforce clinical impression. Adenosis and dense breasts may obscure an underlying neoplasm. False positive reports average 6 to 10%. Patient will receive a letter notifying them of these results.
== END ==
LOC: DI 01:13
PROVIDERS: PCP Family Medicine; Visit Provider Nurse Practitioner Family
DX: Z12.31 Encounter for screening mammogram for malignant neoplasm of breast (principal)
CPT/HCPCS: 77063; 77067

== ENCOUNTER → 2025-05-22 09:17 | Outpatient (CLI) | payer MEDICARE, MEDICAID, SELFPAY ==
--- NOTE | 2025-05-22 09:15 | DI.MRI_ITS ---
Exam(s) MR LOWER JOINT RT WO EXAM: MR LOWER JOINT RT WO CLINICAL HISTORY: R KNEE PAIN, MCL SPRAIN RT KNEE, S83.411A TECHNIQUE: Multiplanar multisequence MRI of the knee was performed. COMPARISON: MR MR LOWER JOINT RT WO from 09/04/2024 CR XR KNEE RT 3V AP,LAT,JERSON from 04/10/2025 FINDINGS: EFFUSION: There is a prominent knee joint effusion and there is synovial thickening most evident in the suprapatellar bursa region. There is an intra- articular loose body in the lateral aspect of this joint effusion which measures 7 by 4 by 6 mm. MARROW:There is bone contusion signal in the lateral tibial plateau. There is a small degenerative subarticular cyst again noted in the posterior aspect of the tibial plateau adjacent to the inferior insertional aspect of the posterior cruciate ligament. There is no surrounding bone edema at this level. PATELLOFEMORAL COMPARTMENT: The quadriceps tendon is intact. The patellar ligament is intact. There is slight lateral position of the patella. There is no significant thinning of the retropatellar cartilage. No evidence of fissure nor significant chondral defect. No osteochondral defect at this level. There is mild cartilage thinning over the trochlear surface. There is no intraosseous signal to suggest recent patellar dislocation. There is some sprain signal at the junction of the medial patellar retinaculum and MCL.. CRUCIATE LIGAMENTS: The anterior cruciate ligament is intact.The posterior cruciate ligament is intact. MEDIAL COMPARTMENT/MEDIAL MENISCUS: There is a small inferior surface tear in the posterior horn of the medial meniscus. No bucket-handle configuration. The anterior horn of the medial meniscus appears intact. However, there is an oval loose 7 by 5 millimeter loose body adjacent to the anterior horn. There is mild thinning of the articular cartilage over the medial condyle. There is no associated subarticular edema.No osteochondral defects. MEDIAL COLLATERAL LIGAMENT: Mild sprain signal. No full-thickness tear. LATERAL COMPARTMENT/LATERAL MENISCUS: There is significant tearing now evident in the anterior horn of the lateral meniscus with significant surrounding edema. This tear involves the outer and inner aspects of the anterior horn of the lateral meniscus. This has progressed from the previous study. Posterior horn lateral meniscus appears intact as does the root.There is some moderate thinning of the articular cartilage over the main weight-bearing surface of the lateral condyle as well as chondral defect and subarticular edema in the subjacent lateral tibial plateau. ILIOTIBIAL BAND: There is fluid signal associated with the inner aspect of the iliotibial band and torn lateral meniscus. The iliotibial band itself, however, appears intact. LATERAL COLLATERAL LIGAMENT COMPLEX: The fibular collateral ligament is intact. The biceps femoris tendon is intact.Popliteus muscle and tendon are intact. IMPRESSION: 1. Compared to the prior MRI scan of 09/04/2024 there is presently prominent tear of the anterior horn of the lateral meniscus and progression of findings in the lateral compartment as described above. There is a small inferior surface tear in the posterior horn of the medial meniscus. Mild degenerative changes are noted over the main weight-bearing surface of both femoral condyles but without subarticular edema. There is now some subarticular edema in the lateral tibial plateau. There are no osteochondral defects but there are few small loose bodies evident as described above. 2. There are no cruciate ligament tears. 3. There is sprain signal evident in the medial collateral ligament but without high-grade tear of this structure. 4. Prominent joint effusion and synovial thickening which has progressed when compared to the prior MRI scan of August 2024. DATA REPOSITORY:
== END ==
PROVIDERS: PCP Family Medicine; Visit Provider Student in an Organized Health Care Education/Training Program
DX: S83.411A Sprain of medial collateral ligament of right knee, initial encounter (principal)
CPT/HCPCS: 73721

== ENCOUNTER 2025-06-05 08:00 | Day surgery (SDC) | payer MEDICARE, MEDICAID, SELFPAY ==
--- NOTE | 2025-06-04 17:53 | W.ANESPRE ---
General Info Date of Service Date Performed: 06/05/25 Height: 5 ft 3 in Weight: 85 kg Body Mass Index (BMI): 33.2 Surgical Procedure: Operation Date: 06/05/25 07:40 Proposed Procedure Side Surgeon p Shoulder Reverse Total Arthroplasty, Biceps Tenodesis Right Paco Gamble MD s Possible Hardware Removal Right Paco Gamble MD Meds Allergies and Home Medications Allergies Allergy/AdvReac Type Severity Reaction Status Date / Time tree nut Allergy Intermediate Nausea Verified 06/04/25 09:21 Penicillins Allergy Mild HIVES- A Verified 06/04/25 09:21 CHILD celecoxib (From Celebrex) AdvReac Unknown Nausea Verified 06/04/25 09:21 Home Medication ?Medication ?Instructions ?Recorded glatiramer 20 mg/mL subcutaneous 20 mg SQ HS 04/03/13 syringe (Copaxone) epinephrine 0.3 mg/0.3 mL 0.3 mg (0.3 mL) IM PRN #1 pen 12/03/19 injection, auto-injector tizanidine 2 mg capsule 2 mg PO TID PRN 09/14/23 loratadine 10 mg tablet See Rx Instructions .Route 08/10/24 .COMPLEX #90 tabs albuterol sulfate 90 mcg/actuation 1 - 2 puff inhalation Q4H PRN #18 09/12/24 aerosol inhaler grams fluticasone 500 mcg-salmeterol 50 1 inh inhalation BID #180 ea 09/12/24 mcg/dose blistr powdr for inhalation metformin 500 mg tablet 500 mg PO BID #180 tabs 09/12/24 rosuvastatin 20 mg tablet 20 mg PO DAILY #90 tabs 09/12/24 lisinopril 5 mg tablet 5 mg PO DAILY #90 tabs 12/18/24 fenofibrate nanocrystallized 48 mg 48 mg PO DAILY #90 tabs 01/17/25 tablet (Tricor) multivitamin 1 tab PO DAILY #90 tabs 01/17/25 omega-3 fatty acids 1,000 mg 1,000 mg PO DAILY #90 caps 01/17/25 capsule lorazepam 1 mg tablet 1 mg PO QHS PRN 04/02/25 calcium 1,000 mg (as 2 tab PO BID #360 tabs 04/10/25 carbonate)-vitamin D3 20 mcg (800 unit) tablet escitalopram oxalate 20 mg tablet 40 mg (2 x 20 mg) PO QAM #180 04/10/25 tab-caps glucosamine 750 wz-pzfrvapnrqn-qhc 1 tab PO DAILY #56 tabs 04/22/25 no1 625 mg-C 30 mg-johanna 1 mg tablet diclofenac sodium 75 mg 75 mg PO BID #180 tabs 04/29/25 tablet,delayed release Current Visit Medications: Current Medications Generic Name Dose Route Start Last Admin Trade Name Freq PRN Reason Stop Dose Admin Ringer's Solution 1,000 mls @ 30 mls/hr 06/05/25 06:00 IV 06/05/25 23:59 INFUSION ULISES Cefazolin Sodium/Dextrose 2 gm in 50 mls @ 100 mls/hr 06/05/25 06:00 Ancef Duplex IVPB 06/05/25 23:59 PREOP ULISES Tranexamic Acid/Sodium Chloride 1,000 mg in 100 mls @ 600 mls/hr 06/05/25 06:00 IVPB 06/05/25 23:59 PREOP ULISES Sodium Chloride 0 ml 06/05/25 06:00 Normal Saline Flush 10 Ml Syr IV 06/05/25 23:59 PRN PRN Sodium Chloride 0 ml 06/05/25 06:00 Normal Saline 10 Ml Vial IJ 06/05/25 23:59 DIRECTED PRN Sterile Water 0 ml 06/05/25 06:00 Water,Injection,Sterile 10 Ml Vial IJ 06/05/25 23:59 DIRECTED PRN PFSH Active Problems Active Problems: Problem Status Onset Code Diabetes type 2 Acute E11.9 MCL sprain of right knee Acute S83.411A Rupture of right proximal biceps tendon Acute S46.211A Impingement syndrome of right shoulder Acute M75.41 Calcific tendinitis of right shoulder Acute M75.31 Arthritis of right acromioclavicular joint Acute M19.011 Tendonitis of long head of biceps brachii of right shoulder Acute M75.21 Internal derangement of right knee Acute M23.91 Osteoarthritis of right shoulder Acute M19.011 Rotator cuff tear, right Acute M75.101 Sacroiliac joint dysfunction of both sides Acute M53.3 Sacroiliac joint dysfunction of left side Acute M53.3 COVID-19 Acute ~03/02/22 U07.1 Postmenopausal hormone therapy Acute Z79.890 Stress incontinence Acute N39.3 Asthma Acute 11/13/13 J45.909 Anxiety Acute F41.9 Depressive disorder Acute F32.9 Essential hypertension Acute I10 Hyperlipidemia Acute E78.5 Insomnia Acute G47.00 Low back pain Acute M54.5 Malignant melanoma of torso excluding breast Acute 12/01/16 C43.59 Multiple sclerosis Acute G35 Obesity Acute E66.9 Pinworms Acute 01/15/15 B80 Allergic rhinitis Acute J30.9 Ear pain, right Acute H92.01 Adjustment disorder Chronic F43.20 Lumbar back pain Acute M54.5 Neck pain Acute M54.2 Incontinence of feces Acute R15.9 Screening for colon cancer Acute Z12.11 Medical History Medical History Normal colonoscopy Asthma Multiple sclerosis Hyperlipidemia Depression Anxiety Essential hypertension Low back pain Insomnia Surgical History Surgical History Hx of tonsillectomy Ligation of fallopian tube Vaginal hysterectomy 11/17/10 Excision, Skin Mass (12/01/16) right chest Colonoscopy - MAC 09/202104/04/11 Cholecystectomy Reduction mammoplasty Tobacco Smoking/Tobacco Use Status: Never Passive smoking exposure: No Second hand exposure: No Alcohol Alcohol Intake: former Substance Use Substance use: Never Substance use type: does not use Prental History History 3 Para Hx # Term Pregnancies Multiple births Hx # Pregnancies Ectopic pregnancies AB induced Hx Number of Living Children AB spontaneous Past Pregnancies Del. Date GA/Weeks # Preg Succ Route Wgt Sex Labor Lgth Anesthesia Location Prov Complic Unknown 34 No Yes vaginal Male [facility]- 08/1979 Unknown 40 No Yes vaginal Male [facility] 07/198302/22/85 40 No Yes Male [facility]- 02/22/1985 Delivery Date: Last Updated by: Anabelle Staton Per pt report forceps were used and baby was early d/t gallbladder attack. Delivery Date: 02/22/85 Last Updated by: Anabelle Staton for breech presentation Anesthesia Assessment and Plan Anesthesia History Personal History: No History of Anesthesia Complications Family History: No Family History of Anesthesia Complications Exercise Tolerance Exercise Tolerance: Metabolic Equivalents>4 Pertinent Negatives Pertinent Negatives: No Symptoms of GERD Cardiac & Pulmonary Exam Cardiac Exam: Normal S1/S2 Heart Sounds Pulmonary Exam: Clear Bilateral Breath Sounds Cardiac and Pulmonary Comment:: Albuterol x3 puffs given in preop Implantable Cardiac Device Does patient have a Pacemaker or an ICD?: No Airway Exam Known Difficult Airway: No Mallampati Class: 2 Mouth Opening: Normal (> 3cm) Thyromental Distance: Less than 3 cm Neck Range of Motion: Full ROM Neck Circumference: Thick Teeth Condition: Normal Dentition ASA Classification ASA Score: ASA 2 Emergency Case?: No NPO Status NPO Status: NPO Clears >2 hours, Solids >8 hours Anesthesia Plan Resuscitation Status: Full Code Anesthesia Technique: General Anesthesia Airway Planned: Endotracheal Tube Monitors Used: Standard Monitors Preoperative Comments:: Discussed with patient regarding benefits and risks of preoperative interscalene block, decision to plan for rescue block if needed. Late electronic entry, [employer]ge was down, copy from paper chart.
[2025-06-05] VITALS (35 sets, daily range): BP systolic 148–188; BP diastolic 62–95; PULSE 63–86; RESP 10–24; TEMP 36–36.9; O2SAT 86–97; BMI 33.2
[2025-06-05] MEDS: Lactated Ringers 1,000 ML 30 ML IV (06:15)
[2025-06-05] MEDS: ceFAZolin 2 GM/50 ML BAG IVPB (07:43)
[2025-06-05] MEDS: TRANEXAMIC ACID/SOD. CHL. 1,000 MG/100 ML BAG 600 MG IVPB (08:04)
[2025-06-05] MEDS: Bupivacaine 0.25% Pres-Free W/EPI 30 ML VIAL ×2 (08:59→10:11)
[2025-06-05] MEDS: Bupivacaine LIPOSOME/PF 133 MG/10 ML VIAL IJ (10:11)
[2025-06-05] MEDS: Vancomycin 1,000 MG VIAL 1000 MG (10:12)
--- NOTE | 2025-06-05 10:38 | W.PM.OP ---
Operative Note Operative Note PRE-OP DIAGNOSIS: Right: 1. Rotator cuff arthropathy 2. Retained permanent suture material and suture anchors 3. Glenohumeral joint arthritis 4. Failed arthroscopic biceps tenodesis POST-OP DIAGNOSIS: same PROCEDURE: Right: 1. Reverse total shoulder arthroplasty, CPT # 47974 2. Revision open biceps tenodesis, CPT # 24593: Conversion of arthroscopic biceps tenodesis to open biceps tenodesis 3. Removal of hardware, CPT #17653: Removal of multiple suture anchors and permanent suture material from the proximal humerus rotator cuff and bone 4. Open subscapularis rotator cuff repair, CPT# 57004 The assistant front office manager was medically required as this procedure involves retraction, protection of neurovascular structures, and manipulation of multiple instruments and implants at the same time, which cannot be done without a skilled assistant front office manager. SURGEON: Paco Gamble [employer] CORE FEEDER: Sidney Calzada ANESTHESIA TYPE: Local By Surgeon and General LMA/ETT Refer to Anesthesia Record ESTIMATED BLOOD LOSS: 200 PATHOLOGY: other (3x tissue and suture samples from the shoulder) COMPLICATIONS: None Patient was transported to: PACU Patient's condition: stable Implants: [employer] modular glenoid system baseplate 24 mm +2 mm lateral [employer] modular glenoid system central post 25 mm [employer] modular glenoid system peripheral locking screws 32 mm inferior, 28 mm superior, 16 mm posterior, 16 mm anterior [employer] modular glenoid system glenosphere 33 +4 mm lateralized [employer] humeral stem 135 degrees size 6 [employer] suture cup size 33 posterior offset [employer] spacer size 33 +6 mm [employer] humeral insert size 33 +3 mm Indications: Please see complete medical record for details. Findings: Failed supraspinatus rotator cuff repair healing. All suture anchors firmly in place and sutures firmly adherent to bone and anchors and even the rotator cuff. Intact more posterior infraspinatus repair likely. Intact subscapularis repair. Arthroscopic biceps tenodesis only partially failed and retracted about 2 cm with the sutures still attached to the biceps tendon and actually healed to the anterior suture repair site. Biceps tendon mobile lower in the bicipital groove. Some adhesions anteriorly subscapularis subcoracoid space. Moderate glenohumeral and labrum degenerative changes. No signs of infection. Procedure Description: In the operating room, general anesthesia was induced. The patient was positioned beachchair on the operating room table. All bony prominences were well-padded. Preoperative antibiotics were administered. The shoulder was prepped and draped in the usual sterile fashion for shoulder arthroplasty. The correct patient, procedure, and side of the procedure were all verified prior to incision. The deltopectoral approach was preinjected with 0.25% bupivacaine containing epinephrine and taken to the anterior shoulder. Care was taken to bluntly dissect the interval between the deltoid and pectoralis major muscles and to identify the cephalic vein within its fat stripe. The the vein was mobilized laterally. Subdeltoid space and conjoined tendon were freed of adhesions. The long head of the biceps tendon was identified just lateral to the lesser tuberosity still attached to be a suture to the anterior suture anchor and retracted maybe a couple centimeters down the groove. The uppermost margin of the pectoralis major tendon was released from the proximal humerus. The long head of the biceps tendon was pulled back up proximally to the initial repair site and then tenodesed in situ using SutureTape in a [id number] fashion securing it superior margin the pectoralis major tendon. The biceps tendon was amputated and followed proximally to identify the rotator interval. A subscapularis peel was performed taking care to release the entire tendon in a full-thickness fashion from superior to inferior and lateral to medial while bringing the arm gradually into external rotation. Care was taken to avoid the axillary nerve by only working on the bone inferiorly and medially. The subscapularis was tagged using SutureTape in a Vince-Adebayo fashion and traction used confirm appropriate mobilization of the subscapularis tendon after gentle blunt dissection was used to free up the space anterior and posterior to it. The supraspinatus was largely devoid, and debrided to a stable margin at the infraspinatus. Appropriate coagulation was achieved especially interiorly. The anatomic neck was cut using an oscillating saw with the humeral head bone brought back table in case there was a need for future bone grafting. 3 tissue and permanent suture samples have been taken and sent for culture given revision setting although given the good strong healing of suture anchors in certain parts of the repair, no signs of infection at all, doubtful any true or even indolent infection. The proximal humerus was delivered from the wound with adduction and external rotation. The proximal humeral protection plate was used to provisionally confirm suture cup and glenosphere size. Reamers were started appropriately posterior to the bicipital groove taking care to maintain in line approach with the humeral canal. Sequential reaming was done from size 5 up to size 6. Next, the broaches were sequentially used to open the proximal humerus starting with a size 5 and going up to size 6 and sunk to the appropriate depth while maintaining approximately 25 degrees retroversion. There was good metaphyseal fit and rotational control of the proximal humerus with this size. The posterior offset guide was used to ream for the suture cup. Attention was then turned to the glenoid and retractors were placed and a circumferential release performed using the long head of the biceps remnant to remove soft tissue about the glenoid rim. Care was taken inferiorly to work on bone only between 5 and 7:00 o'clock and bluntly elevate tissues inferiorly. The VIP guide was placed on the glenoid and used to confirm placement and trajectory of the central guidepin. The guidepin was inserted and advanced just through the far cortex ensuring adequate central fixation length. The glenoid was prepared according to multiple effect evaporator operator specifications for a standard baseplate and central post. The baseplate was impacted onto the glenoid surface. The locking guide was then used to drill and place appropriately lengthed inferior, superior, anterior, and posterior screws. The [id number]-xahovygmi reamer was used to confirm adequate peripheral reaming. The glenosphere was applied with the senior analytical chemist and then impacted to engage the Aviles taper. It was then locked with appropriate countersinking of the setscrew. The glenosphere was inspected and found to have good fit, appropriate positioning, and no soft tissue or bony impingement. Attention was then turned back to the proximal humerus. The humeral trial cup was connected. Trialing was commenced with +3 mm liner. The shoulder was reduced and taken through range of motion. Trial components were built up to +6 mm spacer and +3 mm liner to achieve good stability and appropriate tension on the deltoid and conjoined tension. The trial components were removed from the proximal humerus. The wound was copiously irrigated with normal saline. A 2 mm drill was used to drill 2 drill holes in the bicipital groove for later subscapularis repair. The the proximal humeral stem and suture cup were assembled and brought over the proximal humerus. Suture tapes were placed superiorly inferiorly at the medial and lateral aspect of the suture cup. The lateral tapes were brought out the drill holes. A small amount of vancomycin powder was distributed in the proximal humerus. The humeral component and suture cup were impacted into place. The trial spacer and liner were added, and the shoulder was reduced and range of motion, stability, and tension confirmed to be appropriate. The final spacer and liner were then connected and range of motion, stability, and tension confirmed. The shoulder was copiously irrigated with Betadine and normal saline. Vancomycin powder was distributed deeply about the shoulder and through subcutaneous tissues. The arm was placed in about 30 degrees of external rotation. The subscapularis was reduced and repaired using the pairs of SutureTape in a speed bridge type configuration. The arm was taken into more external rotation without any displacement of the subscapularis repair. An additional 30 cc of 0.25% bupivacaine containing epinephrine and 10 cc of Exparel were injected widely about the shoulder as there was no nerve block done. The deltopectoral interval was approximated with 2-0 Monocryl burying the cephalic vein. Subcutaneous tissue was irrigated then closed using 2-0 Monocryl in a buried interrupted fashion. Skin was closed using 3-0 Monocryl in a buried subcuticular fashion. Skin glue was applied to the incision. A silver impregnated bandage was placed over the incision. The extremity was placed into a shoulder immobilizer. The patient awoke from anesthesia without complication and was taken to the recovery room in stable condition. Date of Procedure: 06/05/25
--- NOTE | 2025-06-05 11:00 | DI.RAD_ITS ---
Exam(s) XR SHOULDER RT COMPLETE 2+V EXAM: XR SHOULDER RT COMPLETE 2+V CLINICAL HISTORY: Shoulder Arthritis. TECHNIQUE: 2D digital imaging was performed of the right shoulder. Two images were obtained. Y and Grashey views were obtained. COMPARISON: CR XR SHOULDER RT COMPLETE 2+V from 04/02/[address] UPPER EXTREMITY RT WO from 05/02/2025 FINDINGS: The patient is now status post right reverse total shoulder arthroplasty. The orthopedic hardware appears in good position. Postsurgical changes are seen in the soft tissues. IMPRESSION: Status post right reverse total shoulder arthroplasty. DATA REPOSITORY: RADIATION DOSE DELIVERED:
[2025-06-05] MEDS: Albuterol/Ipratropium 3 ML UPD VIAL UPD (11:10)
--- NOTE | 2025-06-05 11:32 | PDOC.DSDIS_ITS ---
Date of service: 06/05/25 Discharge Plan Disposition Patient Disposition: Home Condition: Stable Discharge Details Attending Provider: Paco Gamble Primary Care Provider: Camron Longoria Home Meds and New Rx's Prescriptions: New naproxen 250 mg tablet 250 - 500 mg PO BID PRN (Reason: Moderate pain) Qty: 40 0RF oxycodone 5 mg tablet 5 - 10 mg PO Q4H PRN (Reason: Moderate to severe pain) Qty: 18 0RF amoxicillin 500 mg capsule 500 mg PO TID 14 Days Qty: 42 0RF Rx Instructions: Take probiotics or have yogurt daily while taking antibiotics Bio-K plus 50 billion cell capsule,delayed release(DR/EC) 1 cap PO DAILY Qty: 14 0RF Continued fluticasone propion-salmeterol 500-50 mcg/dose blister with device 1 inh inhalation BID Qty: 180 3RF albuterol sulfate 90 mcg/actuation HFA aerosol inhaler 1 - 2 puff Inhalation Q4H PRN Qty: 18 3RF lorazepam 1 mg tablet 1 mg PO QHS PRN epinephrine 0.3 mg/0.3 mL auto-injector 0.3 mg IM PRN Qty: 1 1RF tizanidine 2 mg capsule 2 mg PO TID PRN diclofenac sodium 75 mg tablet,delayed release (DR/EC) 75 mg PO BID Qty: 180 3RF glatiramer [Copaxone] 20 MG kit 20 mg SQ HS loratadine 10 mg tablet See Rx Instructions .ROUTE .COMPLEX Qty: 90 4RF Dose Instruction: TAKE ONE TABLET BY MOUTH EVERY DAY Rx Instructions: TAKE ONE TABLET BY MOUTH EVERY DAY rosuvastatin 20 mg tablet 20 mg PO DAILY Qty: 90 3RF metformin 500 mg tablet 500 mg PO BID Qty: 180 3RF lisinopril 5 mg tablet 5 mg PO DAILY Qty: 90 3RF fenofibrate nanocrystallized [Tricor] 48 mg tablet 48 mg PO DAILY Qty: 90 3RF omega-3 fatty acids 1,000 mg capsule 1,000 mg PO DAILY Qty: 90 3RF multivitamin Tablet 1 tab PO DAILY Qty: 90 3RF calcium carbonate-vitamin D3 1,000 mg-20 mcg (800 unit) tablet 2 tab PO BID Qty: 360 3RF escitalopram oxalate 20 mg tablet 40 mg PO QAM Qty: 180 3RF Rx Instructions: 2 TABS QAM usejjlzi-yrnpw-[id number]-C-johanna-bor [id number] mg tablet 1 tab PO DAILY Qty: 56 12RF Discharge Instructions Additional Instructions: Surgery: Right reverse TSA (subscapularis repair) with revision biceps tenodesis and removal of hardware on 06/05/2025 Activity: Do not lift anything heavier than a coffee. You should keep your arm at your side in a relatively neutral position at all times except for gentle range of motion exercises, physical therapy, and essential activities. You should use the sling whenever you are out of the house. At home it is best to remove the sling and rest the arm on a pillow at your side or support the operative side with your other hand. A physical therapy prescription will be sent electronically to start in about 3 weeks. CONSERVATIVE Reverse TSA Toya col. Prescriptions: Amoxicillin 500 mg take 1 three times each day for 14 days to prevent infection Probiotic take 1 capsule daily, or daily yogurt, while taking antibiotics to prevent GI issues Naproxen 250 mg take 1 every 12 hours with a meal as needed for moderate pain Oxycodone 5 mg take 1-2 every 4-6 hours as needed for severe pain You may use gcub-xhl-[id number] Tylenol (acetaminophen) as needed for mild pain. These pain medications may be taken all at once or in different combinations as needed. Also, recommend Colace (docusate) as a stool softener as surgery and pain medicine cause constipation. You may try ergx-lld-cvoikko diphenhydramine (Benadryl) 25-50 mg nightly as a sleep aid Dressings: Leave dressing in place until follow-up. Keep clean and dry at all times. No showers please. Follow-up: 10-[address] Gamble You may take off the leg compression stockings this evening at home. You may also leave them on a few days longer if you have a history of leg swelling or e katie. Please call the office during business hours with any questions or concerns. Let us know right away if you develop any redness, drainage, fevers, chest pain, or trouble breathing. Do not drink alcohol or drive for at least 24 hours after anesthesia. Stand Alone Forms: [facility] Pickett ([facility]), Portal Information Referrals: Paco Gamble MD [ [facility] STAFF PHYSICIAN, Orthopaedic Surgical] - 06/17/25 9:30 am Discharge Orders Discharge Orders: Discharge Order (Routine); Ordered 06/05/25 Ordered By: Sidney Calzada DS: Diagnosis Discharge Diagnosis (1) Rupture of right proximal biceps tendon: Status: Acute (2) Rotator cuff tear, right: Status: Acute
[2025-06-05] MEDS: ceFAZolin 1 GM/50 ML BAG IVPB (11:45)
--- NOTE | 2025-06-05 12:00 | W.ANESPOSTOP ---
Postoperative Evaluation Date, Time and Location Date Performed: 06/05/25 Time Performed: 12:01 Patient Location: PACU Vital Signs Most Recent Imported Vital Signs: Most Recent Vital Signs Temp Pulse Resp BP Pulse Ox 36.7 C 77 16 171/68 H 94 06/05/25 11:45 06/05/25 11:46 06/05/25 11:46 06/05/25 11:45 06/05/25 11:46 Pain Score Most Recent Pain Score: Most Recent Pain Score Pain Level 4 06/05/25 11:29 Assessment Mental Status: Awake (Alert & Oriented to Patient Baseline) Airway and Respiratory Function: Patent airway with normal (patient baseline) respiratory exam Cardiovascular Function: Hemodynamically Stable Hydration Status: Adequately Hydrated Nausea & Vomiting: No Nausea or Vomiting Pain: Pain is tolerable per patient Peripheral Nerve Block: Patient did not receive a nerve block
[2025-06-05] MEDS: oxyCODONE 5 MG TAB PO (12:52)
[2025-06-05] MEDS: Lactobacillus Acidophilus CAP 1 CAP PO (12:52)
== END 2025-06-05 14:39 | disposition home or self-care (01) ==
PROVIDERS: PCP Family Medicine; Visit Provider Student in an Organized Health Care Education/Training Program
PROC: (CPT 23472; principal; 2025-06-05 07:30)
PROC: (CPT 23472; 2025-06-05 07:30)
DX: S46.211A Strain of muscle, fascia and tendon of other parts of biceps, right arm, initial encounter (principal); M75.101 Unspecified rotator cuff tear or rupture of right shoulder, not specified as traumatic; T85.692A Other mechanical complication of permanent sutures, initial encounter; M19.011 Primary osteoarthritis, right shoulder; M25.811 Other specified joint disorders, right shoulder
CPT/HCPCS: 23472; 23430; 20680; 23410; 73030; 87070; 87075; 87205; J0131; J0666; J0690; J1100; J1171; J1885; J2003; J2250; J2371; J2405; J2704; J3010; J3373; J3475; J7620

== ENCOUNTER 2025-06-17 11:55 | Outpatient (CLI) | payer MEDICARE, MEDICAID, SELFPAY ==
--- NOTE | 2025-06-17 09:30 | DI.RAD_ITS ---
Exam(s) XR SHOULDER RT COMPLETE 2+V EXAM: XR SHOULDER RT COMPLETE 2+V INDICATION: F/U RIGHT RTSA. COMPARISON: No exams were available for comparison TECHNIQUE: 2D digital imaging was performed. Two views. FINDINGS: Stable alignment of reverse shoulder prosthesis. No abnormal bony lucencies. DATA REPOSITORY: RADIATION DOSE DELIVERED:
== END 2025-06-17 11:56 | disposition home or self-care (01) ==
LOC: DIORS 11:55
PROVIDERS: PCP Family Medicine; Referring Provider Family Medicine; Visit Provider Physician Assistant
DX: Z47.1 Aftercare following joint replacement surgery (principal); Z96.611 Presence of right artificial shoulder joint
CPT/HCPCS: 99024; 73030